=== PATIENT | female | born 1945 | race Caucasian/White ===

== ENCOUNTER 2018-12-29 21:02 | Outpatient (CLI) | payer MEDICARE, OTHER | END 2018-12-29 21:03 | disposition critical access hospital (66) | LOC: EMS 21:02 | PROVIDERS: ATTEND Surgery | DX: M25.552 Pain in left hip (principal); W01.0XXA Fall on same level from slipping, tripping and stumbling without subsequent striking against object, initial encounter; Y92.009 Unspecified place in unspecified non-institutional (private) residence as the place of occurrence of the external cause | CPT/HCPCS: A0425; A0427 ==

== ENCOUNTER 2018-12-29 21:42 | Inpatient (IN) | payer MEDICARE, OTHER ==
--- NOTE | 2018-12-29 21:42 | ED Physician Documentation ---
PD HPI LOWER EXT INJURY - Stated complaint Stated Complaint: GLF, L HIP PX - History obtained from History obtained from: Patient, EMS - History of Present Illness PD HPI LOW EXT INJURY LOCATION: Left, Hip Type of injury: Fall Where injury occurred: Home Timing - onset: Enter time (18:30), Today Timing - details: Abrupt onset Pain level max: 8 Pain level now: 5 Improved by: Rest, Other (fentanyl given by medics, total of 200 micrograms) Worsened by: Moving, Palpating Associated symptoms: No: Weakness, Numbness, Tingling, Swelling, Discolored Contributing factors: No: Anticoagulated, Prior ortho surgery, Prosthetic joint Similar symptoms before: Has not had sx before Recently seen: Not recently seen - Additional information Additional information: tripped over her dog at [place] [employer] at approximately 6:30 PM, landed on left hip and c/o sudden onset left hip pain. She is unable to bear weight on LLE. she had to crawl back into her house to get to the phone, a process which took approximately 2 hours. She denies head injury, denies LOC, denies any other injury or pain aside from left hip pain Review of Systems Constitutional: reports: Reviewed and negative Eyes: reports: Reviewed and negative Ears: reports: Reviewed and negative Nose: reports: Reviewed and negative Throat: reports: Reviewed and negative Cardiac: reports: Reviewed and negative Respiratory: reports: Reviewed and negative GI: reports: Reviewed and negative : denies: Incontinent Skin: reports: Reviewed and negative Musculoskeletal: reports: Back pain (chronic), Joint pain (left hip). denies: Neck pain Neurologic: denies: Generalized weakness, Focal weakness, Numbness, Headache, Head injury, LOC PD PAST MEDICAL HISTORY - Past Medical History Past Medical History: Yes Other Past Medical History: chronic LBP - Past Surgical History Past Surgical History: No - Allergies Allergies/Adverse Reactions: Allergies Allergy/AdvReac Type Severity Reaction Status Date / Time Sulfa (Sulfonamide AdvReac Unknown Verified 12/29/18 21:50 Antibiotics) - Living Situation Living Situation: reports: Alone Living Arrangement: reports: At home - Social History Does the pt smoke?: No PD ED PE NORMAL - Vitals Vital signs reviewed: Yes - General General: Alert and oriented X 3, No acute distress (NAD at rest), Well developed/nourished - HEENT HEENT: Atraumatic, PERRL, EOMI, Moist mucous membranes - Neck Neck: No bony TTP - Cardiac Cardiac: RRR, No murmur - Respiratory Respiratory: No respiratory distress, Clear bilaterally - Abdomen Abdomen: Soft, Non tender - Back Back: No spinal TTP - Derm Derm: Normal color, Warm and dry - Extremities Extremities: No edema, Other (TTP left hip; LLE is short compared to RLE and it is externally rotated) - Neuro Neuro: Alert and oriented X 3, naturopathic doctor 2-12 intact, No motor deficit, No sensory deficit Eye Opening: Spontaneous Motor: Obeys Commands Verbal: Oriented GCS Score: 15 Results - Vitals Vitals: Vital Signs - 24 hr 12/29/18 12/29/18 12/29/18 21:45 22:09 22:31 Temperature 36.9 C Heart Rate 84 80 88 Respiratory 17 17 16 Rate Blood Pressure 147/84 H 141/78 H O2 Saturation 95 94 95 Oxygen O2 Source Room air - Labs Labs: Laboratory Tests 12/29/18 12/29/18 12/29/18 22:08 22:08 22:08 WBC 12.5 H RBC 3.86 L Hgb 13.0 Hct 36.3 L MCV 94.0 MCH 33.7 H MCHC 35.8 RDW 11.9 L Plt Count 237 MPV 9.0 Neut # (Auto) 11.1 H Lymph # (Auto) 0.7 L [place] # (Auto) 0.6 Eos # (Auto) 0.0 Baso # (Auto) 0.0 Absolute Nucleated RBC 0.00 Nucleated RBC % 0.0 PT 11.2 INR 1.0 APTT 22.2 L Sodium 140 Potassium 3.8 Chloride 103 Carbon Dioxide 21 Anion Gap 16.0 H BUN 14 Creatinine 0.7 Estimated GFR (MDRD) 82 L Glucose 124 H Calcium 9.1 - Rads (name of study) left hip xrays Radiology: Prelim report reviewed, See rad report PD MEDICAL DECISION MAKING - ED course Complexity details: reviewed results, re-evaluated patient, considered differential, d/w patient ED course: D/W Dr. Coleman, recommends hospitalist admit. Dr. Coleman plans to perform operative repair tomorrow. D/W Dr. Espino who accepts admission to hospitalist service Departure - Departure Disposition: 66 [facility] DC/Xfer Clinical Impression: Hip fracture Condition: Stable Discharge Date/Time: 12/30/18 00:00
[2018-12-29 22:14] LABS: BASOPHILS % (AUTO) 0.3 %; EOSINOPHILS % (AUTO) 0.2 %; LYMPHOCYTES # (AUTO) 0.7 10^3/uL (1.5-3.5); LYMPHOCYTES % (AUTO) 5.5 %; MEAN CORPUSCULAR HEMOGLOBIN 33.7 pg (27.0-31.0); MEAN CORPUSCULAR HGB CONC 35.8 g/dL (32.0-36.0); MONOCYTES # (AUTO) 0.6 10^3/uL (0.0-1.0); MONOCYTES % (AUTO) 4.6 %; NEUTROPHILS # (AUTO) 11.1 10^3/uL (1.5-6.6); NEUTROPHILS % (AUTO) 88.8 %; PLT - PLATELET COUNT 237 10^3/uL (130-450); RED BLOOD COUNT 3.86 10^6/uL (4.20-5.40); RED CELL DISTRIBUTION WIDTH 11.9 % (12.0-15.0); WHITE BLOOD COUNT 12.5 x10^3/uL (4.8-10.8)
[2018-12-29 22:21] LABS: PT - PROTHROMBIN TIME 11.2 secs (9.9-12.6)
[2018-12-29 22:24] LABS: CALCIUM 9.1 mg/dL (8.5-10.3); CREATININE 0.7 mg/dL (0.4-1.0)
[2018-12-29 22:28] LABS: PARTIAL THROMBOPLASTIN TIME 22.2 secs (24.9-33.3)
[2018-12-29] MEDS ORDERED: MORPHINE 2 MG/ML CARPUJECT IVP STA (22:48)
[2018-12-29] MEDS ORDERED: SODIUM CHLORIDE 0.9% 1,000 ML IV STA (22:49)
--- NOTE | 2018-12-29 22:57 | XRAY Report ---
Reason: fall, pain Procedure Date: 12/29/2018 Accession Number: [id number] / [id number] Procedure: XR - Hip w/Pelvis 2-3V LT CPT Code: FULL RESULT: EXAM: LEFT HIP RADIOGRAPHY. EXAM DATE: 12/29/2018 10:27 PM. CLINICAL HISTORY: Fall, pain. COMPARISON: None. TECHNIQUE: 4 views. FINDINGS: Bones: There is an acute mild angulated transcervical left femoral fracture. Mild foreshortening. Joints: No dislocation demonstrated. There is bilateral hip joint chondrocalcinosis. Moderate bilateral hip joint DJD. Soft Tissues: Mild localized soft tissue swelling. Moderate calcific atherosclerosis. Moderate to severe lower lumbar degenerative change. IMPRESSION: Acute transcervical fracture of the left femur with mild foreshortening. RADIA
[2018-12-29] MEDS ORDERED: PANTOPRAZOLE 40 MG VIAL IVP STA (23:09)
[2018-12-29] MEDS ORDERED: SODIUM CHLORIDE FLUSH 0.9% 10 ML SYRINGE IVP PRN (23:20)
[2018-12-29] MEDS ORDERED: oxyCODONE 5 MG TABLET PO PRN (23:20)
[2018-12-29] MEDS ORDERED: ACETAMINOPHEN 325 MG TABLET PO PRN (23:20)
[2018-12-29] MEDS ORDERED: LACTATED RINGERS 1,000 ML IV SCH (23:45)
--- NOTE | 2018-12-30 | HISTORY & PHYSICAL EXAMINATION ---
Chief Complaint - Chief Complaint Chief Complaint: Left hip pain after fall History of Present Illness - Admitted From Admitted From:: Home - History Obtained From Records Reviewed: Yes History obtained from: Patient, ER Physician - History of Present Illness HPI Comment/Other: This is a 73 year old female with past medical history significant for chronic lower back pain, and GERD who presents from home after she had a fall. She reports falling down two steps earlier today while she was carrying dog food and going to her garage. She fell on her left hip and it took her two hours to crawl to the nearest phone to call for help. She currently reports the pain is 8/10, located over left hip, achy in nature, and radiates down her leg to the knee. She just received Morphine with minor relief. She denies any syncope or loss of consciousness prior to the fall and can recall the events leading up to it. She has recently been seeing a [facility] in [place] for her chronic lower back pain. She is actually scheduled for an MRI this week and to receive steroid injections. She does have occasional neuropathy of the lower extremities for which she takes Gabapentin. She reports being quite healthy overall and is very active. She used to ski a lot but now goes hiking and swimming without chest pain or dyspnea. She currently denies chest pain, dyspnea or palpitations. She reports a remote history of some type of arrhythmia when she was menopausal which she was told is associated with menopause. She reports no history of diabetes or renal disease. In the emergency department, she underwent imaging of her left hip which revealed an acute transcervical fracture of the left femur. Orthopedics was contacted by the ER physician and recommended admission for intervention. She does not have her living will documents with her but she states she does want CPR if anything were to happen. History - Past Medical History Cardiovascular: reports: None. 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 Was previously but now . Lives at home with her two dogs. Does not smoke or use illicit drugs. She usually does consume one alcoholic beverage each day. - Substance History Use: Uses substance without health or social issues: Alcohol - POLST Patient has POLST: No Meds/Allgy - Allergies Allergies/Adverse Reactions: Allergies Allergy/AdvReac Type Severity Reaction Status Date / Time Sulfa (Sulfonamide AdvReac Unknown Verified 12/29/18 21:50 Antibiotics) Review of Systems - Constitutional Constitutional: denies: Fatigue, Fever, Chills, Weakness - Ears, Nose & Throat Ears, Nose & Throat: reports: Other (Dry mouth) - Cardiovascular Cariovascular: denies: Palpitations, Chest pain, Edema, Exertional dyspnea, Decr. exercise tolerance - Respiratory Respiratory: denies: SOB at rest, SOB with exertion - Gastrointestinal Gastrointestinal: denies: Abdominal pain, Nausea, Vomiting - Genitourinary Genitourinary: reports: Incontinence - Musculoskeletal Musculoskeletal: reports: Back pain, Stiffness. denies: Muscle weakness - Integumentary Integumentary: denies: Rash - Neurological Neurological: reports: Numbness. denies: General weakness, Focal weakness - All Other Systems All Other Systems: reports: Reviewed and negative Prior Level of Functionality: Independent with ADL's. Exam - Vital Signs Reviewed Vital Signs: Yes Vital Signs: Vital Signs x48h Temp Pulse Resp BP Pulse Ox 12/29/18 23:31 85 16 153/76 H 95 12/29/18 22:31 88 16 141/78 H 95 12/29/18 22:09 80 17 94 12/29/18 21:45 36.9 C 84 17 147/84 H 95 - Physical Exam General Appearance: positive: Moderate distress Eyes Bilateral: positive: Normal inspection ENT: positive: Dry mucous membranes Neck: positive: Nml inspection Respiratory: positive: No respiratory distress, Breath sounds nml. negative: Wheezes, Rales, Rhonchi Cardiovascular: positive: Regular rate & rhythm. negative: No murmur, Tachycardia, Bradycardia Peripheral Pulses: positive: 2+ Abdomen: positive: Non-tender, No distention. negative: Tenderness, Guarding, Rebound Skin: positive: No rash, Warm, Dry Extremities: positive: Non-tender, Pedal edema (Trace edema in lower extremities), Other (Decreased range of motion of the left hip. No tenderness to palpation, eythema, or warmth.) Neurologic/Psychiatric: positive: Oriented x3, Sensation nml. negative: Disoriented to person, Disoriented to place, Disoriented to time Conclusion/Plan - Problem List (1) Fracture of left hip Conclusion/Plan: Unfortunately she has a transcervical fracture of the left femur after her mechanical fall that will require intervention. - Dilaudid PRN pain - Will give a one time dose of Heparin SC now as she will be high risk for venous thromboembolism, will resume Heparin SC postoperatively once OK with Orthopedics - NPO at midnight - Check Vitamin D level - She will require a bisphosphonate 4-6 weeks postoperatively as hip fractures are fragility fractures - PT/OT - Social work consult for disposition planning (2) Pre-op evaluation Conclusion/Plan: She has no chest pain, dyspnea, and palpitations. She is able to perform >4 METS without symptoms. She has no history of vascular disease, diabetes, or renal disease. She has no murmur on exam. Her EKG reveals a normal sinus rhythm without obvious ST segment changes. Her Green perioperative cardiac risk is 0.18% for a perioperative cardiac event given the orthopedic procedure site. (3) Chronic lower back pain Conclusion/Plan: She has a history of chronic lower back pain for which she follows with a [facility] in [place]. She is scheduled for an MRI this week and steroid injec tions but unfortunately she will have to miss these appointments because of her admission. She does take Gabapentin for neuropathy. The x-ray of the left hip here also revealed severe lumbar degenerative changes - Continue Gabapentin - Outpatient follow up with her [facility] (4) GERD (gastroesophageal reflux disease) Conclusion/Plan: She has a history of GERD associated with a hiatal hernia for which she takes a PPI. - Continue PPI - Lab Results Lab results reviewed: Yes Fish Bones: 12/30/18 05:00 12/30/18 05:00 - Diagnostic Imaging Results Diagnostic Imaging Results: positive: Final report reviewed - EKG Results EKG Interpreted Independently: Yes Core Measures - Anticipated LOS I expect patient to be DC'd or transferred within 96 hours.: Yes - Issues Hospital Issues and Management Plan: Left hip fracture that will require intervention by Orthopedics. - DVT/VTE - Prophylaxis VTE/DVT Device ordered at admit?: Yes VTE/DVT Prophylaxis med ordered at admit?: Yes
[2018-12-30] MEDS ORDERED: HEPARIN 5,000 UNIT/ML VIAL SUBQ STA (00:11)
[2018-12-30] MEDS ORDERED: SODIUM CHLORIDE FLUSH 0.9% 10 ML SYRINGE IVP SCH (01:00)
[2018-12-30] MEDS: HYDROmorphone 1 MG/ML CARPUJECT IVP PRN ×3 (01:05→06:59)
[2018-12-30] MEDS ORDERED: ONDANSETRON 4 MG/2 ML VIAL IVP PRN (01:14)
[2018-12-30 05:24] LABS: BASOPHILS % (AUTO) 0.2 %; EOSINOPHILS % (AUTO) 0.5 %; HGB - HEMOGLOBIN 12.1 g/dL (12.0-16.0); LYMPHOCYTES % (AUTO) 11.9 %; MEAN CORPUSCULAR HEMOGLOBIN 32.7 pg (27.0-31.0); MEAN CORPUSCULAR HGB CONC 34.5 g/dL (32.0-36.0); MEAN CORPUSCULAR VOLUME 94.9 fL (81.0-99.0); MEAN PLATELET VOLUME 9.3 fL (7.9-10.8); MONOCYTES # (AUTO) 0.7 10^3/uL (0.0-1.0); MONOCYTES % (AUTO) 8.2 %; NEUTROPHILS # (AUTO) 6.6 10^3/uL (1.5-6.6); NEUTROPHILS % (AUTO) 78.7 %; PLT - PLATELET COUNT 221 10^3/uL (130-450); RED CELL DISTRIBUTION WIDTH 12.2 % (12.0-15.0); WHITE BLOOD COUNT 8.4 x10^3/uL (4.8-10.8)
[2018-12-30 05:32] LABS: CALCIUM 9.1 mg/dL (8.5-10.3); CREATININE 0.8 mg/dL (0.4-1.0)
[2018-12-30] MEDS ORDERED: PANTOPRAZOLE 40 MG TABLET PO SCH (07:00)
[2018-12-30] MEDS ORDERED: BUPIVACAINE 0.25%-EPI 1:200000 PF 30 ML VIAL ONE (07:12)
--- NOTE | 2018-12-30 07:13 | ANESTHESIA ---
Pre-Anesthesia VS, & Labs - Diagnosis L hip fx\ - Procedure L hip ORIF Vital Signs: Temp Pulse Resp BP Pulse Ox 37.6 C H 80 20 142/77 H 95 12/30/18 01:46 12/30/18 01:46 12/30/18 01:46 12/30/18 00:10 12/30/18 01:46 Height 5 ft 6 in Weight (kg) 76.5 kg Body Mass Index 27.2 - NPO >8 hours - Is Patient ?: No - Lab Results Current Lab Results: Laboratory Tests 12/30/18 05:00: Sodium 141, Potassium 4.2, Chloride 104, Carbon Dioxide 25, Anion Gap 12.0, BUN 13, Creatinine 0.8, Estimated GFR (MDRD) 70 L, Glucose 125 H , Calcium 9.1 12/30/18 05:00: WBC 8.4, RBC 3.70 L, Hgb 12.1, Hct 35.1 L, MCV 94.9, MCH 32.7 H, MCHC 34.5, RDW 12.2, Plt Count 221, MPV 9.3, Neut # (Auto) 6.6, Lymph # (Auto) 1.0 L, [place] # (Auto) 0.7, Eos # (Auto) 0.0, Baso # (Auto) 0.0, Absolute Nucleated RBC 0.00, Nucleated RBC % 0.0 12/29/18 22:08: Sodium 140, Potassium 3.8, Chloride 103, Carbon Dioxide 21, Anion Gap 16.0 H, BUN 14, Creatinine 0.7, Estimated GFR (MDRD) 82 L, Glucose 124 H, Calcium 9.1 12/29/18 22:08: PT 11.2, INR 1.0, APTT 22.2 L 12/29/18 22:08: WBC 12.5 H, RBC 3.86 L, Hgb 13.0, Hct 36.3 L, MCV 94.0, MCH 33.7 H, MCHC 35.8, RDW 11.9 L, Plt Count 237, MPV 9.0, Neut # (Auto) 11.1 H, Lymph # (Auto) 0.7 L, [place] # (Auto) 0.6, Eos # (Auto) 0.0, Baso # (Auto) 0.0, Absolute Nucleated RBC 0.00, Nucleated RBC % 0.0 Lab results reviewed: Yes Fish Bones: 12/30/18 05:00 12/30/18 05:00 Home Medications and Allergies Active Medications Acetaminophen (Tylenol) 650 mg PO Q6HR PRN PRN Reason: Pain 1 to 4 Gabapentin (Neurontin) 100 mg PO QPM [facility] Heparin Sodium (Porcine) () 5,000 unit SUBQ BID [facility] Hydromorphone HCl (Dilaudid Inj Carp) 1 mg IVP Q2HR PRN PRN Reason: Pain 8 to 10 Last Admin: 12/30/18 06:59 Dose: 1 mg Lactated Ringer's (Lr) 1,000 mls @ 75 mls/hr IV .[id number] [facility] Last Admin: 12/30/18 01:05 Dose: 75 mls/hr Ondansetron HCl (Zofran Inj) 4 mg IVP Q4HR PRN PRN Reason: Nausea / Vomiting Oxycodone HCl (Roxicodone) 5 mg PO Q4HR PRN PRN Reason: Pain 5 to 7 Pantoprazole Sodium (Protonix) 40 mg PO QDAC [facility] Last Admin: 12/30/18 05:47 Dose: Not Given Sodium Chloride (Normal Saline Flush 0.9%) 10 ml IVP PRN PRN PRN Reason: NEEDED PER PROVIDER ORDERS Sodium Chloride (Normal Saline Flush 0.9%) 10 ml IVP 0100,0900,1700 [facility] Last Admin: 12/30/18 01:13 Dose: Not Given Allergies/Adverse Reactions: Allergies Allergy/AdvReac Type Severity Reaction Status Date / Time Sulfa (Sulfonamide AdvReac Unknown Verified 12/29/18 21:50 Antibiotics) Anes History & Medical History - Anesthetic History Anesthesia Complications: reports: No previous complications Family history of Anesthesia Complications: Denies Family history of Malignant Hyperthermia: Denies - Medical History Cardiovascular: reports: None. denies: Congestive heart failure, [place] Pulmonary: reports: None Gastrointestinal: reports: GERD Urinary: reports: Incontinence Neuro: reports: None Musculoskeletal: reports: Chronic back pain, Other (cervical and lumbar stenosis, neuropathies upper and lower extremities) Endocrine/Autoimmune: reports: None Blood Disorders: reports: None Skin: reports: None Smoking Status: Never smoker Other Past Medical History: chronic LBP - Surgical History General: EGD Orthopedic: Rotator cuff repair (Left shoulder), Spine surgery (Cervical) Dermatologic: Skin cancer surgery Exam General: Alert, Oriented x3, Cooperative Dental: WNL Mouth Openin Fingerbreadth Mallampati classification: II Respiratory: Lungs clear, Normal breath sounds Cardiovascular: Regular rate Neurological: Normal speech Mental/Cognitive Status: Alert/Oriented X3, Normal for patient Cognitive Status: Within normal limits Plan Anesthesia Type: General Consent for Procedure(s) Verified and Reviewed: Yes Code Status: Attempt Resuscitation ASA classification: 2-Mild systemic disease Is this case an emergency?: No
--- NOTE | 2018-12-30 07:25 | PROVIDER PROGRESS NOTE ---
Subjective - Prog Note Date Prog Note Date: 12/30/18 Prog Note Time: 07:22 - Subjective Pt reports feeling: Worse (Patient ONEYDA rodriguez GLF last afternoon at home, falling onto her left side. Unable to stand or weight bear on her left side. No distal weakness/numbness. No LOC or other injury. Was able to eventually crawl to a phone to call for help. In ER XR showed her displaced right femoral neck hip fracture. To OR for bipolar hip endoprosthesis.) Subjective: Patient ONEYDA Rodriguez GLF at home yesterday afternoon, falling onto her left side. Noted immediate left hip pain. Unable to stand or weight bear on left. Had to crawl to a phone to call for help. No LOC or other injury. Objective - Vital Signs/Intake & Output Vital Signs: Vital Signs x48h Temp Pulse Pulse Resp BP BP Pulse Ox 12/30/18 01:46 37.6 C H 80 20 95 12/30/18 00:10 37.6 C H 80 20 142/77 H 95 12/29/18 23:58 37.4 C 82 16 155/87 H 95 12/29/18 23:31 85 16 153/76 H 95 Intake & Output: Intake & Output 12/27/18 12/28/18 12/29/18 12/30/18 23:59 23:59 23:59 23:59 Intake Total 307.5 Output Total 500 250 Balance -500 57.5 - Lab Results Fish Bones: 12/30/18 05:00 12/30/18 05:00 Other Labs: Lab Results x24hrs 12/30/18 12/30/18 12/29/18 Range/Units 05:00 05:00 22:08 WBC 8.4 (4.8-10.8) x10^3/uL RBC 3.70 L (4.20-5.40) 10^6/uL Hgb 12.1 (12.0-16.0) g/dL Hct 35.1 L (37.0-47.0) % MCV 94.9 (81.0-99.0) fL MCH 32.7 H (27.0-31.0) pg MCHC 34.5 (32.0-36.0) g/dL RDW 12.2 (12.0-15.0) % Plt Count 221 (130-450) 10^3/uL MPV 9.3 (7.9-10.8) fL Neut # (Auto) 6.6 (1.5-6.6) 10^3/uL Lymph # (Auto) 1.0 L (1.5-3.5) 10^3/uL [place] # (Auto) 0.7 (0.0-1.0) 10^3/uL Eos # (Auto) 0.0 (0.0-0.7) 10^3/uL Baso # (Auto) 0.0 (0.0-0.1) 10^3/uL Absolute Nucleated RBC 0.00 x10^3/uL Nucleated RBC % 0.0 /100WBC PT (9.9-12.6) secs INR (0.8-1.2) APTT (24.9-33.3) secs Sodium 141 140 (135-145) mmol/L Potassium 4.2 3.8 (3.5-5.0) mmol/L Chloride 104 103 (101-111) mmol/L Carbon Dioxide 25 21 (21-32) mmol/L Anion Gap 12.0 16.0 H (6-13) BUN 13 14 (6-20) mg/dL Creatinine 0.8 0.7 (0.4-1.0) mg/dL Estimated GFR (MDRD) 70 L 82 L (>89) Glucose 125 H 124 H (70-100) mg/dL Calcium 9.1 9.1 (8.5-10.3) mg/dL 12/29/18 12/29/18 Range/Units 22:08 22:08 WBC 12.5 H (4.8-10.8) x10^3/uL RBC 3.86 L (4.20-5.40) 10^6/uL Hgb 13.0 (12.0-16.0) g/dL Hct 36.3 L (37.0-47.0) % MCV 94.0 (81.0-99.0) fL MCH 33.7 H (27.0-31.0) pg MCHC 35.8 (32.0-36.0) g/dL RDW 11.9 L (12.0-15.0) % Plt Count 237 (130-450) 10^3/uL MPV 9.0 (7.9-10.8) fL Neut # (Auto) 11.1 H (1.5-6.6) 10^3/uL Lymph # (Auto) 0.7 L (1.5-3.5) 10^3/uL [place] # (Auto) 0.6 (0.0-1.0) 10^3/uL Eos # (Auto) 0.0 (0.0-0.7) 10^3/uL Baso # (Auto) 0.0 (0.0-0.1) 10^3/uL Absolute Nucleated RBC 0.00 x10^3/uL Nucleated RBC % 0.0 /100WBC PT 11.2 (9.9-12.6) secs INR 1.0 (0.8-1.2) APTT 22.2 L (24.9-33.3) secs Sodium (135-145) mmol/L Potassium (3.5-5.0) mmol/L Chloride (101-111) mmol/L Carbon Dioxide (21-32) mmol/L Anion Gap (6-13) BUN (6-20) mg/dL Creatinine (0.4-1.0) mg/dL Estimated GFR (MDRD) (>89) Glucose (70-100) mg/dL Calcium (8.5-10.3) mg/dL - Diagnostic Imaging Diagnostic Imaging Comments: XR show a displaced left femoral neck hip fracture - Other Results/Comments Other Results/Comments: EXAM: Left hip: anterior groin tenderness. Painful left hip motion. Moves toes well. Sensation intact. Good cap filling Assessment/Plan - Problem List (1) Fracture of left hip Impression: Closed, displaced left femoral neck hip fracture - in an active, independent woman in a single level home PLAN: To OR this AM for cementless bipolar hip endoprosthesis. Treatment options given; questions answered. Risk and benefits of surgery including anesthesia risk, infection, blood loss, nerve damage, DVT, dislocation, etc explained. She wishes to proceed with surgery as planned. Consent signed. Leg marked. Qualifiers: Encounter type: initial encounter
[2018-12-30] MEDS ORDERED: LACTATED RINGERS 1,000 ML IV ONE ×2 (07:35→09:51)
[2018-12-30] MEDS ORDERED: ceFAZolin 1 GM in SODIUM CHLORIDE 0.9% MINIBAG 100 ML IV SCH (08:00)
[2018-12-30] MEDS ORDERED: BUPIVACAINE 0.25%-EPI 1:200000 PF 30 ML VIAL SUBQ ONE ×2 (08:41→10:20)
--- NOTE | 2018-12-30 08:53 | CONSULTATION NOTE ---
DATE OF SERVICE: 12/30/2018 Physician: Saul Coleman MD REFERRING PHYSICIAN: Gregory Omer MD, of the Emergency Room Department. CHIEF COMPLAINT: "My left hip hurts." HISTORY OF PRESENT ILLNESS: Patient is a 73-year-old, woman, independent, lives alone in a single-level home, who apparently fell going down to cement yesterday afternoon while she was attemp ting to feed her dog. She landed onto her left side with the fall. She noted immediate pain in her left hip area. She was unable to stand or weight bear due to pain. After several hours, she was abl e to crawl back up into her house to get to a phone to call for help. She was taken by ambulance to [facility], where x-rays showed a displaced left femoral neck fracture. She denies any loss of consciousness or other injuries. She was subsequently admitted to the hospital for preopera tive evaluation for probable hip surgery in the morning. PHYSICAL EXAMINATION: Patient's left hip was tender, especially in the anterior groin region. Painf ul hip range of motion noted today in bed. She was able to move her toes satisfactorily on command. Sensation appeared to be intact in the lower extremity. Good capillary filling noted. X-RAYS: X-rays that were taken show a displaced left femoral neck hip fracture. ASSESSMENT 1. Closed displaced left femoral neck hip fracture. 2. History of chronic back pain with the diagnosis of spinal stenosis. 3. History of gastroesophageal reflux disease. PLAN: Once patient has been cleared medically, we will plan on proceeding with surgery for her left hip. The risks and benefits of surgery were explained to patient. These include anesthesia risks, h ip dislocation, infection, blood loss, nerve damage, deep venous thromboses, etc. We did discuss the possibility of doing a screw fixation of her fracture and then the prostheses. After weighing the p ros and cons of either procedure, she wishes to proceed with a cementless left bipolar hip endoprosth esis. She has been scheduled to proceed with surgery later this morning. All of her questions were answered. Consent was signed. Leg was marked. TD: 12/30/2018 07:44
[2018-12-30] MEDS ORDERED: TRANEXAMIC ACID 1,000 MG/10 ML VIAL IV ONE (10:00)
[2018-12-30] MEDS ORDERED: CEFAZOLIN SODIUM IN 0.9 % NACL 2 GM/100 ML BAG IV ONE (10:00)
[2018-12-30] MEDS ORDERED: fentaNYL 100 MCG/2 ML VIAL IVP ONE (10:00)
[2018-12-30] MEDS ORDERED: ACETAMINOPHEN 1,000 MG/100 ML 100 ML IV ONE (10:00)
[2018-12-30] MEDS ORDERED: LIDOCAINE-MPF 2% 5 ML VIAL IM ONE (10:00)
[2018-12-30] MEDS ORDERED: MIDAZOLAM 2 MG/2 ML VIAL IVP ONE (10:00)
[2018-12-30] MEDS ORDERED: PROPOFOL 200 MG/20 ML VIAL IVP ONE (10:00)
[2018-12-30] MEDS ORDERED: KETOROLAC 30 MG/ML VIAL IVP ONE (10:00)
[2018-12-30] MEDS ORDERED: DEXAMETHASONE 4 MG/ML VIAL IVP ONE (10:00)
[2018-12-30] MEDS ORDERED: ROCURONIUM 50 MG/5 ML VIAL IVP ONE (10:00)
[2018-12-30] MEDS ORDERED: DOCUSATE SODIUM 100 MG CAPSULE PO PRN (10:31)
[2018-12-30] MEDS ORDERED: PROCHLORPERAZINE 10 MG/2 ML VIAL IVP PRN (10:31)
[2018-12-30] MEDS ORDERED: MORPHINE 2 MG/ML CARPUJECT IVP PRN (10:31)
[2018-12-30] MEDS ORDERED: SODIUM CHLORIDE FLUSH 0.9% 10 ML SYRINGE IVP PRN (10:31)
[2018-12-30] MEDS ORDERED: SENNA 8.6 MG TABLET PO PRN (10:31)
[2018-12-30] MEDS ORDERED: ACETAMINOPHEN 1,000 MG/100 ML 100 ML IV PRN (10:31)
--- NOTE | 2018-12-30 10:38 | OPERATIVE REPORT ---
Operative Report - General Admit Date: 12/29/18 Procedure Date: 12/30/18 Planned Procedure: Left cementless Synergy bipolar endoprosthesis Pre-Op Diagnosis: Closed, displaced left fempral neck hip fracture Procedure Performed: Left synergy cementless biop[olar endoprosthesis Post Op Diagnosis: Same - Procedure Note Primary Surgeon: Donovan Coleman MD Anesthesia Provider: Jesenia Henry CRNA Anesthesia Technique: General ET tube IV Fluids (mL): 1,300 Estimated Blood Loss (mL): 500 Complications: None
[2018-12-30] MEDS ORDERED: KETOROLAC 15 MG/ML VIAL ONE (10:53)
--- NOTE | 2018-12-30 11:10 | OPERATIVE REPORT ---
DATE OF SERVICE: 12/30/2018 Physician: Saul Coleman MD PREOPERATIVE DIAGNOSIS: Displaced, closed left femoral neck hip fracture. POSTOPERATIVE DIAGNOSIS: Displaced, closed left femoral neck hip fracture. PROCEDURE PERFORMED: Left Synergy cementless bipolar hip endoprosthesis. SURGEON: Saul Coleman MD ANESTHESIA: General. DESCRIPTION OF PROCEDURE: The patient was taken to the operating room on the morning of 12/30/2018, where she was placed under general anesthetic in supine position without any complications. She was then positioned onto the fracture table in the left lateral decubitus position with the left side up. She was held in position with the pegboard and pegs. We then proceeded to prep and drape the left hip in the usual fashion for our procedure. Through a curvilinear incision centered over the tip of the greater trochanter and curving posteriorl y proximally, we did a posterolateral approach to the hip joint. Hemostasis was obtained with electr ocautery. We detached the external rotators of the hip and came down to the femoral neck and the fra ctured femoral neck. Using the template, we then performed our osteotomy at the base of the femoral neck. We then did a T-type capsulotomy with electrocautery tagging the flaps with a [id number] stitch of 2-0 Vicryl sutures. We then used the cord screw apparatus to grab hold of the femoral head . With the hip skid, we then were able to manipulate the femoral head out of the joint. Calipers we re then used and we determined a 47 mm outside diameter prosthesis would be utilized. We cleared the fovea from within the acetabulum using a rongeur. Irrigated the joint out thoroughly with saline at this point. We then proceeded to use the box osteotome to widen the osteotomy of the proximal femur laterally. The Charnley awl was then used to locate the stem of the femoral canal. We then sequenti humbertoy used rigid reamers advancing a millimeter at a time until it appeared as if a 12-13 mm stem woul d be utilized. We then proceeded to sequentially broach the proximal femur using sequential broaches ending up at the 13 mm broach, which appeared to have a good fit. We detached the handle from our b brown and then proceeded to trial our prostheses using a standard offset 0 neck length and an externa l diameter prosthesis of 47 mm. We were able to reduce the hip easily. Appeared as if this was stab le on testing. The leg lengths appear to be equal in length. No impingement with extension of the h ip joint with the leg externally rotated. Sleep position was stable. Then, holding the hip flexed a t about 90 degrees and 0 abduction position, we were able to internally rotate the leg to about 55-60 degrees before subluxation of the prostheses occurred. It was felt that this was stable in position . We then dislocated the hip. We removed our trial prostheses. With the broach still in place, we then used a calcar reamer to smooth our osteotomy site. We then removed the broach from within the c anal. We then irrigated out the prepared proximal femur, acetabulum and the wound with pulse lavage irrigation. Next, we used our selected prostheses to insert into the patient. We used a 13 mm stem with a standa rd offset neck length of 0 and an internal head diameter of the bipolar being 28 mm with the outside diameter being 47 mm. We first inserted the stem of our prostheses in tapping it with a mallet until it was seated properly. We then placed the bipolar component onto the proximal end of our prosthese s. We tapped this in place with a mallet with 3 blows. Finally, we then gently reduced the hip into the acetabulum. Appeared to have a good audible reduction. Palpation circumferentially around the prostheses showed no soft tissue impingement within the joint. Finally, we went and checked on the s tability of the joint. The leg lengths appear to be equal compared to the opposite side. We were ab le to go to full extension easily with the leg externally rotated without impingement. We then put t he hip into a sleep position and this was stable. Finally, with the hip flexed to 90 degrees neutral abduction, we then internally rotated the leg to about 60 degrees, where we already noted joint subl uxation. Satisfied with this, we then put the leg into a neutral position. We irrigated the wound o ut thoroughly with saline, then proceeded to close the wound in layers using first reattachment of ou r capsule with a free needle with the previously inserted 2-0 Vicryl sutures that were used as stay s titches. We then proceeded to close the fascia isabelle incision using [id number] stitches of 0 Gaudencio ryl. Finally, 2-0 Vicryl used to close the subcutaneous tissues. Finally, skin lucie used to appr oximate the skin edge. We then dressed the hip wound. The patient was then placed into a hip abduct or pillow to hold the leg position as we positioned her supine and transferred her onto her bed. She was taken to recovery room in satisfactory condition. ESTIMATED BLOOD LOSS: 500 mL REPLACEMENT: 1300 mL crystalloid. INTRAOPERATIVE COMPLICATIONS: None. PLAN: The patient will be advanced to weightbearing as tolerated on this extremity and walker ambula ting with total hip precautions as tolerated. TD: 12/30/2018 10:49
--- NOTE | 2018-12-30 11:28 | XRAY Report ---
Reason: CHECK LEFT HEMIARTHROPLASTY POSITION Procedure Date: 12/30/2018 Accession Number: [id number] / [id number] Procedure: XR - Pelvis 1 View CPT Code: FULL RESULT: EXAM: PELVIS RADIOGRAPHY EXAM DATE: 12/30/2018 11:12 AM. CLINICAL HISTORY: Check left hemiarthroplasty position. COMPARISON: HIP W/PELVIS 2-3V LT 12/29/2018 10:03 PM. TECHNIQUE: 1 view. FINDINGS: Bones: No fracture is detected. Joints: There has been interval left hip arthroplasty. The head of the hemiarthroplasty is seated within the anatomic acetabulum, expected positioning. Soft Tissues: Within the soft tissues is a 1.7 x 1.0 cm radiopaque object within the surgical approach region, differential diagnosis is osseous fragment versus foreign body. IMPRESSION: Foreign body versus osseous fragment in the subcutaneous soft tissues as described. [facility] The call report notification system was initiated by Dr. Rudy Abraham at 11:27 AM on 12/30/2018. ADDENDUM: 12/30/18 11:49 The above call report findings were discussed with MARIBEL Hartley on behalf of Saul Coleman by Dr. Rudy Abraham at 11:49 AM on 12/30/2018.
[2018-12-30] MEDS: oxyCODONE 5 MG TABLET PO PRN ×2 (12:29→17:43)
[2018-12-30] MEDS: ONDANSETRON 4 MG/2 ML VIAL IVP PRN (12:29)
--- NOTE | 2018-12-30 13:02 | PROVIDER PROGRESS NOTE ---
Subjective - Prog Note Date Prog Note Date: 12/30/18 Prog Note Time: 13:01 - Subjective Pt reports feeling: Improved Subjective: Lois complains of nasal congestion, possibly leading to a cough, and states she believes that her surgery went as expected. She is worried about how getting out of bed is going to happen tomorrow. Current Medications - Current Medications Current Medications: Active Medications: Acetaminophen (Tylenol) 650 - 975 mg PO Q4HR PRN Docusate Sodium (Colace 100mg Capsule) 100 mg PO BID REX Fexofenadine HCl (Ella) 60 mg PO DAILY REX Gabapentin (Neurontin) 100 mg PO QPM REX Gabapentin (Neurontin) 200 mg PO QPM REX Heparin Sodium (Porcine) 5,000 unit SUBQ BID REX Sodium Chloride (Normal Saline 0.9%) 1,000 mls @ 100 mls/hr IV .Q10H REX Morphine Sulfate (Morphine (Carpuject) 2 mg IVP Q2HR PRN Ondansetron HCl (Zofran Inj) 4 mg IVP Q6HR PRN Oxycodone HCl (Roxicodone) 5 mg PO Q4HR PRN Pantoprazole Sodium (Protonix) 40 mg PO BID REX Prochlorperazine Edisylate (Compazine Inj) 10 mg IVP Q6HR PRN Senna (Senokot) 17.2 mg PO Q12H REX Sodium Chloride ([place]) 2 sprays JOSE ARMANDO BID [facility] meds: Gabapentin 200 - 300 mg PO QPM 12/30/18 Pantoprazole Sodium 20 mg PO BIDAC 12/30/18 raNITIdine [Zantac] 150 mg PO BID 12/30/18 Objective - Vital Signs/Intake & Output Reviewed Vital Signs: Yes Vital Signs: Vital Signs x48h Temp Pulse Pulse Resp BP BP Pulse Ox 12/30/18 11:37 37.0 C 76 18 142/75 H 98 12/30/18 11:12 36.8 C 77 18 144/80 H 98 12/30/18 11:06 75 14 149/79 H 99 12/30/18 11:02 75 13 138/78 H 92 12/30/18 10:57 75 14 138/89 H 97 12/30/18 10:51 37.2 C 73 16 144/87 H 96 12/30/18 10:49 85 22 146/80 H 99 12/30/18 10:41 69 12 103/87 H 100 12/30/18 10:36 69 13 150/79 H 100 12/30/18 10:31 36.8 C 73 12 156/77 H 100 Intake & Output: Intake & Output 12/27/18 12/28/18 12/29/18 12/30/18 23:59 23:59 23:59 23:59 Intake Total 307.5 Output Total 500 250 Balance -500 57.5 - Objective General Appearance: positive: No acute distress, Alert Eyes Bilateral: positive: PERRL ENT: positive: Pharynx nml, No signs of dehydration Neck: positive: Thyroid nml, No JVD, Trachea midline Respiratory: positive: Chest non-tender, No respiratory distress, Other (scattered crackles, bilaterally, cough today) Cardiovascular: positive: Regular rate & rhythm, No gallop, Systolic murmur Peripheral Pulses: 1+ Radial (R), 1+ Radial (L), 1+ Dorsalis pedis (R), 1+ Dorsalis pedis (L) Abdomen: positive: Non-tender, Nml bowel sounds Back: positive: Nml inspection Skin: positive: No rash, Warm, Dry, Other (tanned skin tone) Extremities: positive: Joint swelling (left hip post-op swelling) Neurologic/Psychiatric: positive: Oriented x3, CN's nml (2-12), Motor nml, Sensation nml, Weakness Reflexes: Bicep (R): 3+, Bicep (L): 3+ - Lab Results Fish Bones: 12/31/18 05:44 12/31/18 05:44 Other Labs: Lab Results x24hrs 12/30/18 12/30/18 12/30/18 Range/Units 11:16 05:00 05:00 WBC (4.8-10.8) x10^3/uL RBC (4.20-5.40) 10^6/uL Hgb (12.0-16.0) g/dL Hct (37.0-47.0) % MCV (81.0-99.0) fL MCH (27.0-31.0) pg MCHC (32.0-36.0) g/dL RDW (12.0-15.0) % Plt Count (130-450) 10^3/uL MPV (7.9-10.8) fL Neut # (Auto) (1.5-6.6) 10^3/uL Lymph # (Auto) (1.5-3.5) 10^3/uL [place] # (Auto) (0.0-1.0) 10^3/uL Eos # (Auto) (0.0-0.7) 10^3/uL Baso # (Auto) (0.0-0.1) 10^3/uL Absolute Nucleated RBC x10^3/uL Nucleated RBC % /100WBC PT (9.9-12.6) secs INR (0.8-1.2) APTT (24.9-33.3) secs Sodium 141 (135-145) mmol/L Potassium 4.2 (3.5-5.0) mmol/L Chloride 104 (101-111) mmol/L Carbon Dioxide 25 (21-32) mmol/L Anion Gap 12.0 (6-13) BUN 13 (6-20) mg/dL Creatinine 0.8 (0.4-1.0) mg/dL Estimated GFR (MDRD) 70 L (>89) Glucose 125 H (70-100) mg/dL Calcium 9.1 (8.5-10.3) mg/dL Blood Type B POSITIVE Blood Type Recheck B POSITIVE Antibody Screen NEGATIVE 12/30/18 12/29/18 12/29/18 Range/Units 05:00 22:08 22:08 WBC 8.4 (4.8-10.8) x10^3/uL RBC 3.70 L (4.20-5.40) 10^6/uL Hgb 12.1 (12.0-16.0) g/dL Hct 35.1 L (37.0-47.0) % MCV 94.9 (81.0-99.0) fL MCH 32.7 H (27.0-31.0) pg MCHC 34.5 (32.0-36.0) g/dL RDW 12.2 (12.0-15.0) % Plt Count 221 (130-450) 10^3/uL MPV 9.3 (7.9-10.8) fL Neut # (Auto) 6.6 (1.5-6.6) 10^3/uL Lymph # (Auto) 1.0 L (1.5-3.5) 10^3/uL [place] # (Auto) 0.7 (0.0-1.0) 10^3/uL Eos # (Auto) 0.0 (0.0-0.7) 10^3/uL Baso # (Auto) 0.0 (0.0-0.1) 10^3/uL Absolute Nucleated RBC 0.00 x10^3/uL Nucleated RBC % 0.0 /100WBC PT 11.2 (9.9-12.6) secs INR 1.0 (0.8-1.2) APTT 22.2 L (24.9-33.3) secs Sodium 140 (135-145) mmol/L Potassium 3.8 (3.5-5.0) mmol/L Chloride 103 (101-111) mmol/L Carbon Dioxide 21 (21-32) mmol/L Anion Gap 16.0 H (6-13) BUN 14 (6-20) mg/dL Creatinine 0.7 (0.4-1.0) mg/dL Estimated GFR (MDRD) 82 L (>89) Glucose 124 H (70-100) mg/dL Calcium 9.1 (8.5-10.3) mg/dL Blood Type Blood Type Recheck Antibody Screen 12/29/18 Range/Units 22:08 WBC 12.5 H (4.8-10.8) x10^3/uL RBC 3.86 L (4.20-5.40) 10^6/uL Hgb 13.0 (12.0-16.0) g/dL Hct 36.3 L (37.0-47.0) % MCV 94.0 (81.0-99.0) fL MCH 33.7 H (27.0-31.0) pg MCHC 35.8 (32.0-36.0) g/dL RDW 11.9 L (12.0-15.0) % Plt Count 237 (130-450) 10^3/uL MPV 9.0 (7.9-10.8) fL Neut # (Auto) 11.1 H (1.5-6.6) 10^3/uL Lymph # (Auto) 0.7 L (1.5-3.5) 10^3/uL [place] # (Auto) 0.6 (0.0-1.0) 10^3/uL Eos # (Auto) 0.0 (0.0-0.7) 10^3/uL Baso # (Auto) 0.0 (0.0-0.1) 10^3/uL Absolute Nucleated RBC 0.00 x10^3/uL Nucleated RBC % 0.0 /100WBC PT (9.9-12.6) secs INR (0.8-1.2) APTT (24.9-33.3) secs Sodium (135-145) mmol/L Potassium (3.5-5.0) mmol/L Chloride (101-111) mmol/L Carbon Dioxide (21-32) mmol/L Anion Gap (6-13) BUN (6-20) mg/dL Creatinine (0.4-1.0) mg/dL Estimated GFR (MDRD) (>89) Glucose (70-100) mg/dL Calcium (8.5-10.3) mg/dL Blood Type Blood Type Recheck Antibody Screen - Diagnostic Imaging Diagnostic Imaging Results: positive: Final report reviewed Diagnostic Imaging Comments: EXAM: LEFT HIP RADIOGRAPHY EXAM DATE: 12/29/2018 10:27 PM FINDINGS: Bones: There is an acute mild angulated transcervical left femoral fracture. Mild foreshortening. Joints: No dislocation demonstrated. There is bilateral hip joint chondrocalcinosis. Moderate bilateral hip joint DJD. Soft Tissues: Mild localized soft tissue swelling. Moderate calcific atherosclerosis. Moderate to severe lower lumbar degenerative change. IMPRESSION: Acute transcervical fracture of the left femur with mild foreshortening. ABX Reporting Has patient been on IV antibiotics over the past 48 hours?: Yes Assessment/Plan - Problem List (1) Postoperative pain, acute, hip Impression: - Patient is comfortable while not moving - Has not been out of bed yet since surgery Plan: Continue to treat with dilaudid, tylenol, monitor for improvement Qualifiers: Laterality: left Qualified Code(s): G89.18 - Other acute postprocedural pain; M25.552 - Pain in left hip (2) Fracture of left hip Impression: - Patient admits to injuring her neck, and ankle in the past - She admits to a mechanical fall at home while carrying some dog food bags - Imaging confirmed this finding with an acute transcervical fracture of the left femur with mild foreshortening - Dr. Coleman performed a left hip repair and documented approximately 500 mL blood loss and no post-op complications Plan: Continue post op cares Qualifiers: Encounter type: initial encounter (3) Fall Impression: - Patient arrived via EMS to the ER and reported, "I was walking, tripped over dog, landing on left hip/leg at about 6:30pm tonight". She denied striking her head, a loss of consiousness, or head or neck pain. Initial exam showed a shortening of the left leg - Patient denies previous episodes, or recent dizziness - She does admit to prior urinary tract infections, and had a WBC count of 12.5 on arrival, febrile with a temp max of 37.6 C - Consequently fracture of left hip - Now post-op left hip repair with Dr. Coleman Plan: Await PT evaluations, up for meals with nursing, and fall precautions Qualifiers: Encounter type: initial encounter Qualified Code(s): W19.XXXA - Unspecified fall, initial encounter (4) GERD (gastroesophageal reflux disease) Impression: - terminologist use of PPI at home - Continues on Protonix here - Complicating factor of a known hiatal hernia Plan: Continue PPI, treat symptoms (5) Hiatal hernia Impression: - Patient states this in her past medical history - Takes a PPI at home, continued here
[2018-12-30] MEDS: SODIUM CHLORIDE 0.9% 1,000 ML IV SCH (13:17)
[2018-12-30] MEDS: ceFAZolin 2 GM in SODIUM CHLORIDE 0.9% 100ML 100 ML IV SCH (16:04)
[2018-12-30] MEDS: SODIUM CHLORIDE FLUSH 0.9% 10 ML SYRINGE IVP SCH (17:05)
[2018-12-30] MEDS: ACETAMINOPHEN 325 MG TABLET PO PRN (17:45)
[2018-12-30] MEDS: DOCUSATE SODIUM 100 MG CAPSULE PO SCH ×2 (20:17→20:41)
[2018-12-30] MEDS: SENNA 8.6 MG TABLET PO SCH (20:17)
[2018-12-30] MEDS: GABAPENTIN 100 MG CAPSULE PO SCH (20:40)
[2018-12-30] MEDS: PANTOPRAZOLE 40 MG TABLET PO SCH (20:40)
[2018-12-30] MEDS: SODIUM CHLORIDE 0.65% NASAL SPRAY NAS SCH (20:42)
[2018-12-30 21:00] LABS: BILIRUBIN,URINE NEGATIVE (NEGATIVE); GLUCOSE, URINE (UA) NEGATIVE (NEGATIVE); KETONES,URINE (UA) NEGATIVE (NEGATIVE); LEUKOCYTE ESTERASE, URINE NEGATIVE (NEGATIVE); NITRITE,URINE NEGATIVE (NEGATIVE); OCCULT BLOOD,URINE TRACE-INTA (NEGATIVE); PROTEIN,URINE NEGATIVE (NEGATIVE); UROBILINOGEN,URINE 0.2 (NORMAL) E.U./dL (NORMAL)
[2018-12-30] MEDS ORDERED: GABAPENTIN 100 MG CAPSULE PO SCH (21:00)
[2018-12-30 21:01] LABS: CLARITY,URINE CLEAR (CLEAR)
--- NOTE | 2018-12-30 21:15 | XRAY Report ---
Reason: cough Procedure Date: 12/30/2018 Accession Number: [id number] / [id number] Procedure: XR - Chest 1 View X-Ray CPT Code: 06649 FULL RESULT: EXAM: CHEST RADIOGRAPHY EXAM DATE: 12/30/2018 07:43 PM. CLINICAL HISTORY: Cough. COMPARISON: None. TECHNIQUE: 1 view. FINDINGS: Lungs/Pleura: Crowding of right infrahilar markings. No definite consolidation or pulmonary edema. No pneumothorax or pleural effusion. Mediastinum: Mild cardiomegaly and mildly tortuous aorta. Other: Scoliosis. No acute fracture evident. Suture anchor in the right humeral head. IMPRESSION: 1. Mild cardiomegaly. No eugene pulmonary edema. 2. Crowding of right infrahilar lung markings, possible hypoventilatory change. No definite consolidation. Follow-up, if appropriate. [facility]
[2018-12-30 21:17] LABS: BACTERIA,URINE None Seen /HPF (None Seen); EPITHELIAL CELLS,UR RARE Transitional /HPF (<= Few); RBC,URINE None Seen /HPF (0-5); SQUAMOUS EPITHELIAL CELL,UR NONE SEEN (<= Few)
[2018-12-31] MEDS: ACETAMINOPHEN 325 MG TABLET PO PRN ×3 (00:02→16:49)
[2018-12-31] MEDS: oxyCODONE 5 MG TABLET PO PRN ×5 (00:02→20:55)
[2018-12-31] MEDS: ceFAZolin 2 GM in SODIUM CHLORIDE 0.9% 100ML 100 ML IV SCH (00:03)
[2018-12-31] MEDS: SODIUM CHLORIDE 0.9% 1,000 ML IV SCH ×4 (00:03→20:58)
[2018-12-31] MEDS: SODIUM CHLORIDE FLUSH 0.9% 10 ML SYRINGE IVP SCH ×3 (01:06→18:02)
[2018-12-31 05:56] LABS: BASOPHILS % (AUTO) 0.3 %; EOSINOPHILS # (AUTO) 0.1 10^3/uL (0.0-0.7); EOSINOPHILS % (AUTO) 1.9 %; HGB - HEMOGLOBIN 9.5 g/dL (12.0-16.0); LYMPHOCYTES # (AUTO) 1.5 10^3/uL (1.5-3.5); LYMPHOCYTES % (AUTO) 19.4 %; MEAN CORPUSCULAR HEMOGLOBIN 32.8 pg (27.0-31.0); MEAN CORPUSCULAR HGB CONC 33.6 g/dL (32.0-36.0); MEAN CORPUSCULAR VOLUME 97.6 fL (81.0-99.0); MEAN PLATELET VOLUME 9.2 fL (7.9-10.8); MONOCYTES # (AUTO) 0.8 10^3/uL (0.0-1.0); MONOCYTES % (AUTO) 10.5 %; NEUTROPHILS # (AUTO) 5.1 10^3/uL (1.5-6.6); NEUTROPHILS % (AUTO) 67.5 %; PLT - PLATELET COUNT 160 10^3/uL (130-450); RED CELL DISTRIBUTION WIDTH 12.2 % (12.0-15.0); WHITE BLOOD COUNT 7.5 x10^3/uL (4.8-10.8)
[2018-12-31 06:17] LABS: ALBUMIN 3.3 g/dL (3.2-5.5); ALBUMIN/GLOBULIN RATIO 1.5 (1.0-2.2); BILIRUBIN,TOTAL 0.6 mg/dL (0.2-1.0); CALCIUM 8.3 mg/dL (8.5-10.3); CREATININE 0.8 mg/dL (0.4-1.0); MAGNESIUM 1.9 mg/dL (1.7-2.8); TOTAL PROTEIN 5.5 g/dL (6.7-8.2)
--- NOTE | 2018-12-31 08:06 | PROVIDER PROGRESS NOTE ---
Subjective - Prog Note Date Prog Note Date: 12/31/18 Prog Note Time: 08:06 - Subjective Pt reports feeling: Improved Subjective: Lois complains of a relentless headache, which she states she gets at home. She states that this occurred shortly after lunch, which prevented her from working with therapy. She denies chest pain, vomiting, diarrhea, increased hip pain or a new cough. Current Medications - Current Medications Current Medications: Active Medications: Acetaminophen (Tylenol) 650 - 975 mg PO Q4HR PRN Dexamethasone (Decadron) 10 mg IVP Q6H REX Docusate Sodium (Colace 100mg Capsule) 100 mg PO BID REX Enoxaparin Sodium (Lovenox) 40 mg SUBQ DAILY REX Fexofenadine HCl (Ella) 60 mg PO DAILY REX Gabapentin (Neurontin) 200 mg PO QPM REX Sodium Chloride (Normal Saline 0.9%) 1,000 mls @ 100 mls/hr IV .Q10H REX Metoclopramide HCl (Reglan Inj) 5 mg IVP Q6HR REX Morphine Sulfate (Morphine (Carpuject) 2 mg IVP Q2HR PRN Ondansetron HCl (Zofran Inj) 4 mg IVP Q6HR PRN Oxycodone HCl (Roxicodone) 5 mg PO Q4HR PRN Oxymetazoline HCl (Afrin) 2 sprays JOSE ARMANDO BID REX Pantoprazole Sodium (Protonix) 40 mg PO BID REX Prochlorperazine Edisylate (Compazine Inj) 10 mg IVP Q6HR PRN Senna (Senokot) 17.2 mg PO Q12H REX Sodium Chloride ([place]) 2 sprays JOSE ARMANDO BID [facility] HOME meds: Gabapentin 200 - 300 mg PO QPM 12/30/18 Pantoprazole Sodium 20 mg PO BIDAC 12/30/18 raNITIdine [Zantac] 150 mg PO BID 12/30/18 Objective - Vital Signs/Intake & Output Reviewed Vital Signs: Yes Vital Signs: Vital Signs x48h Temp Pulse Resp BP Pulse Ox 12/31/18 03:54 37.3 C 67 16 119/63 98 Intake & Output: Intake & Output 12/28/18 12/29/18 12/30/18 12/31/18 23:59 23:59 23:59 23:59 Intake Total 3307.500 250 Output Total 500 2500 650 Balance -500 807.500 -400 - Objective General Appearance: positive: Moderate distress, Lethargic Eyes Bilateral: positive: PERRL, No lid inflammation Eyes: OU Scleral icterus (mild) ENT: positive: Pharynx nml, No signs of dehydration Neck: positive: Thyroid nml, No JVD Respiratory: positive: Chest non-tender, No respiratory distress, Breath sounds nml Cardiovascular: positive: Regular rate & rhythm, No gallop, Systolic murmur Peripheral Pulses: 1+ Radial (R), 1+ Radial (L) Abdomen: positive: Non-tender, Nml bowel sounds, Other (rounded, soft) Back: positive: Nml inspection Skin: positive: No rash, Warm, Dry, Other (bronze skin toned) Extremities: positive: Pedal edema, Joint swelling (left hip post op swelling, no obvious bleeding) Neurologic/Psychiatric: positive: Oriented x3, CN's nml (2-12), Motor nml, Sensation nml, Weakness, Depressed mood/affect, Other (less interactive, sweating noted on palms, +Nausea, no anxiety) Reflexes: Bicep (R): 3+, Bicep (L): 3+ - Lab Results Fish Bones: 12/31/18 05:44 12/31/18 05:44 Other Labs: Lab Results x24hrs 12/31/18 12/31/18 12/31/18 Range/Units 05:44 05:44 05:44 WBC 7.5 (4.8-10.8) x10^3/uL RBC 2.90 L (4.20-5.40) 10^6/uL Hgb 9.5 L (12.0-16.0) g/dL Hct 28.3 L (37.0-47.0) % MCV 97.6 (81.0-99.0) fL MCH 32.8 H (27.0-31.0) pg MCHC 33.6 (32.0-36.0) g/dL RDW 12.2 (12.0-15.0) % Plt Count 160 (130-450) 10^3/uL MPV 9.2 (7.9-10.8) fL Neut # (Auto) 5.1 (1.5-6.6) 10^3/uL Lymph # (Auto) 1.5 (1.5-3.5) 10^3/uL [place] # (Auto) 0.8 (0.0-1.0) 10^3/uL Eos # (Auto) 0.1 (0.0-0.7) 10^3/uL Baso # (Auto) 0.0 (0.0-0.1) 10^3/uL Absolute Nucleated RBC 0.00 x10^3/uL Nucleated RBC % 0.0 /100WBC Sodium 141 (135-145) mmol/L Potassium 4.1 (3.5-5.0) mmol/L Chloride 105 (101-111) mmol/L Carbon Dioxide 27 (21-32) mmol/L Anion Gap 9.0 (6-13) BUN 10 (6-20) mg/dL Creatinine 0.8 (0.4-1.0) mg/dL Estimated GFR (MDRD) 70 L (>89) Glucose 111 H (70-100) mg/dL Calcium 8.3 L (8.5-10.3) mg/dL Magnesium 1.9 (1.7-2.8) mg/dL Total Bilirubin 0.6 (0.2-1.0) mg/dL AST 22 (10-42) IU/L ALT 14 (10-60) IU/L Alkaline Phosphatase 52 (42-121) IU/L Total Protein 5.5 L (6.7-8.2) g/dL Albumin 3.3 (3.2-5.5) g/dL Globulin 2.2 (2.1-4.2) g/dL Albumin/Globulin Ratio 1.5 (1.0-2.2) 25-OH Vitamin D Total (30-100) ng/mL TSH 0.28 L (0.34-5.60) uIU/mL Urine Color Urine Clarity (CLEAR) Urine pH (5.0-7.5) PH Ur Specific [place] (1.002-1.030) Urine Protein (NEGATIVE) mg/dL Urine Glucose (UA) (NEGATIVE) mg/dL Urine Ketones (NEGATIVE) mg/dL Urine Occult Blood (NEGATIVE) Urine Nitrite (NEGATIVE) Urine Bilirubin (NEGATIVE) Urine Urobilinogen (NORMAL) E.U./dL Ur Leukocyte Esterase (NEGATIVE) Urine RBC (0-5) /HPF Urine WBC (0-5) /HPF Ur Epithelial Cells (<= Few) /HPF Ur Squamous Epith Cells (<= Few) Urine Bacteria (None Seen) /HPF Urine Culture Comments Blood Type Blood Type Recheck Antibody Screen 12/30/18 12/30/18 12/30/18 Range/Units 20:45 11:16 05:00 WBC (4.8-10.8) x10^3/uL RBC (4.20-5.40) 10^6/uL Hgb (12.0-16.0) g/dL Hct (37.0-47.0) % MCV (81.0-99.0) fL MCH (27.0-31.0) pg MCHC (32.0-36.0) g/dL RDW (12.0-15.0) % Plt Count (130-450) 10^3/uL MPV (7.9-10.8) fL Neut # (Auto) (1.5-6.6) 10^3/uL Lymph # (Auto) (1.5-3.5) 10^3/uL [place] # (Auto) (0.0-1.0) 10^3/uL Eos # (Auto) (0.0-0.7) 10^3/uL Baso # (Auto) (0.0-0.1) 10^3/uL Absolute Nucleated RBC x10^3/uL Nucleated RBC % /100WBC Sodium (135-145) mmol/L Potassium (3.5-5.0) mmol/L Chloride (101-111) mmol/L Carbon Dioxide (21-32) mmol/L Anion Gap (6-13) BUN (6-20) mg/dL Creatinine (0.4-1.0) mg/dL Estimated GFR (MDRD) (>89) Glucose (70-100) mg/dL Calcium (8.5-10.3) mg/dL Magnesium (1.7-2.8) mg/dL Total Bilirubin (0.2-1.0) mg/dL AST (10-42) IU/L ALT (10-60) IU/L Alkaline Phosphatase (42-121) IU/L Total Protein (6.7-8.2) g/dL Albumin (3.2-5.5) g/dL Globulin (2.1-4.2) g/dL Albumin/Globulin Ratio (1.0-2.2) 25-OH Vitamin D Total (30-100) ng/mL TSH (0.34-5.60) uIU/mL Urine Color YELLOW Urine Clarity CLEAR (CLEAR) Urine pH 6.0 (5.0-7.5) PH Ur Specific [place] <=1.005 (1.002-1.030) Urine Protein NEGATIVE (NEGATIVE) mg/dL Urine Glucose (UA) NEGATIVE (NEGATIVE) mg/dL Urine Ketones NEGATIVE (NEGATIVE) mg/dL Urine Occult Blood TRACE-INTA (NEGATIVE) Urine Nitrite NEGATIVE (NEGATIVE) Urine Bilirubin NEGATIVE (NEGATIVE) Urine Urobilinogen 0.2 (NORMAL) (NORMAL) E.U./dL Ur Leukocyte Esterase NEGATIVE (NEGATIVE) Urine RBC None Seen (0-5) /HPF Urine WBC 4-5 (0-5) /HPF Ur Epithelial Cells RARE Transitional (<= Few) /HPF Ur Squamous Epith Cells NONE SEEN (<= Few) Urine Bacteria None Seen (None Seen) /HPF Urine Culture Comments NOT INDICATED Blood Type B POSITIVE Blood Type Recheck B POSITIVE Antibody Screen NEGATIVE 12/30/18 Range/Units 05:00 WBC (4.8-10.8) x10^3/uL RBC (4.20-5.40) 10^6/uL Hgb (12.0-16.0) g/dL Hct (37.0-47.0) % MCV (81.0-99.0) fL MCH (27.0-31.0) pg MCHC (32.0-36.0) g/dL RDW (12.0-15.0) % Plt Count (130-450) 10^3/uL MPV (7.9-10.8) fL Neut # (Auto) (1.5-6.6) 10^3/uL Lymph # (Auto) (1.5-3.5) 10^3/uL [place] # (Auto) (0.0-1.0) 10^3/uL Eos # (Auto) (0.0-0.7) 10^3/uL Baso # (Auto) (0.0-0.1) 10^3/uL Absolute Nucleated RBC x10^3/uL Nucleated RBC % /100WBC Sodium (135-145) mmol/L Potassium (3.5-5.0) mmol/L Chloride (101-111) mmol/L Carbon Dioxide (21-32) mmol/L Anion Gap (6-13) BUN (6-20) mg/dL Creatinine (0.4-1.0) mg/dL Estimated GFR (MDRD) (>89) Glucose (70-100) mg/dL Calcium (8.5-10.3) mg/dL Magnesium (1.7-2.8) mg/dL Total Bilirubin (0.2-1.0) mg/dL AST (10-42) IU/L ALT (10-60) IU/L Alkaline Phosphatase (42-121) IU/L Total Protein (6.7-8.2) g/dL Albumin (3.2-5.5) g/dL Globulin (2.1-4.2) g/dL Albumin/Globulin Ratio (1.0-2.2) 25-OH Vitamin D Total 39 (30-100) ng/mL TSH (0.34-5.60) uIU/mL Urine Color Urine Clarity (CLEAR) Urine pH (5.0-7.5) PH Ur Specific [place] (1.002-1.030) Urine Protein (NEGATIVE) mg/dL Urine Glucose (UA) (NEGATIVE) mg/dL Urine Ketones (NEGATIVE) mg/dL Urine Occult Blood (NEGATIVE) Urine Nitrite (NEGATIVE) Urine Bilirubin (NEGATIVE) Urine Urobilinogen (NORMAL) E.U./dL Ur Leukocyte Esterase (NEGATIVE) Urine RBC (0-5) /HPF Urine WBC (0-5) /HPF Ur Epithelial Cells (<= Few) /HPF Ur Squamous Epith Cells (<= Few) Urine Bacteria (None Seen) /HPF Urine Culture Comments Blood Type Blood Type Recheck Antibody Screen ABX Reporting Has patient been on IV antibiotics over the past 48 hours?: No Assessment/Plan - Problem List (1) Postoperative pain, acute, hip Impression: - Patient is comfortable while not moving - Refused therapy today x2, underwent an OT evaluation, who recommends SNF verses home with home health Plan: Continue to treat with dilaudid, tylenol, monitor for improvement Qualifiers: Laterality: left Qualified Code(s): G89.18 - Other acute postprocedural pain; M25.552 - Pain in left hip (2) Migraine Impression: - Patient states that her migraine started shortly after lunch, and is accompa nied by nausea, sweating, and triggered by bright lights - Patient states that this is not uncommon for her, and states that since her cervical spine surgery, she suffers at least monthly with migraines - Dilaudid and tylenol are not working - Afrin spray has not been started yet, ella has been added to her med list Plan: Continue to monitor for improvement, give IV reglan, IV decadron (x3 dos es Q6H), and offer alcohol if ETOH withdrawal is suspected (3) Fracture of left hip Impression: - Patient admits to injuring her neck, and ankle in the past - She admits to a mechanical fall at home while carrying some dog food bags - Imaging confirmed this finding with an acute transcervical fracture of the left femur with mild foreshortening - Dr. Coleman performed a left hip repair and documented approximately 500 mL blood loss and no post-op complications - Today admits to consuming daily "cocktails" of likely 3-5 drinks per day, so likely a contributing factor to this fall Plan: Continue post op cares Qualifiers: Encounter type: initial encounter (4) Fall Impression: - Patient arrived via EMS to the ER and reported, "I was walking, tripped over dog, landing on left hip/leg at about 6:30pm tonight". She denied striking her head, a loss of consciousness, or head or neck pain. Initial exam showed a shortening of the left leg - Patient denies previous episodes, or recent dizziness - She does admit to prior urinary tract infections, and had a WBC count of 12.5 on arrival, now 7.5, febrile with a temp max of 37.6 C, now afebrile - Consequently fracture of left hip - Now post-op day #[address] repair [address] 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 - Continues on Protonix here - Complicating factor of a known hiatal hernia Plan: Continue PPI, treat symptoms (6) Hiatal hernia Impression: - Patient states this in her past medical history - Takes a PPI at home, continued here (7) Alcohol dependence Impression: - Patient is having uncontrolled headaches (migraines), nausea, and has sweaty palms on exam - She denies hallucinations, anxiety, tremors, or neuropathy pain - When asking about her history of ETOH, she admits to at least 3 cocktails, then states, "I don't keep track" - Will hold off on [facility] protocol for now, but will report to [facility] Hospitalist for overnight - Patient refuses to be served alcohol when asked Plan: Check GGT on labs in the AM, CMP, and be watchful of potential ETOH withdrawal
[2018-12-31] MEDS: SENNA 8.6 MG TABLET PO SCH ×2 (08:48→20:55)
[2018-12-31] MEDS: FEXOFENADINE 60 MG TABLET PO SCH (08:49)
[2018-12-31] MEDS: PANTOPRAZOLE 40 MG TABLET PO SCH ×2 (08:50→20:55)
[2018-12-31] MEDS: SODIUM CHLORIDE 0.65% NASAL SPRAY NAS SCH ×2 (08:51→20:57)
[2018-12-31] MEDS: DOCUSATE SODIUM 100 MG CAPSULE PO SCH ×2 (08:51→20:55)
[2018-12-31] MEDS ORDERED: HEPARIN 5,000 UNIT/ML VIAL SUBQ SCH (09:00)
--- NOTE | 2018-12-31 10:45 | PROVIDER PROGRESS NOTE ---
Subjective - Prog Note Date Prog Note Date: 12/31/18 Prog Note Time: 10:43 - Subjective Pt reports feeling: Improved (Usual post op pain. Up on floor with PT) Objective - Vital Signs/Intake & Output Vital Signs: Vital Signs x48h Temp Pulse Resp BP Pulse Ox 12/31/18 08:00 37.4 C 78 16 116/58 L 94 12/31/18 03:54 37.3 C 67 16 119/63 98 Intake & Output: Intake & Output 12/28/18 12/29/18 12/30/18 12/31/18 23:59 23:59 23:59 23:59 Intake Total 3307.500 1370 Output Total 500 2500 1400 Balance -500 807.500 -30 - Lab Results Fish Bones: 12/31/18 05:44 12/31/18 05:44 Other Labs: Lab Results x24hrs 12/31/18 12/31/18 12/31/18 Range/Units 05:44 05:44 05:44 WBC 7.5 (4.8-10.8) x10^3/uL RBC 2.90 L (4.20-5.40) 10^6/uL Hgb 9.5 L (12.0-16.0) g/dL Hct 28.3 L (37.0-47.0) % MCV 97.6 (81.0-99.0) fL MCH 32.8 H (27.0-31.0) pg MCHC 33.6 (32.0-36.0) g/dL RDW 12.2 (12.0-15.0) % Plt Count 160 (130-450) 10^3/uL MPV 9.2 (7.9-10.8) fL Neut # (Auto) 5.1 (1.5-6.6) 10^3/uL Lymph # (Auto) 1.5 (1.5-3.5) 10^3/uL [place] # (Auto) 0.8 (0.0-1.0) 10^3/uL Eos # (Auto) 0.1 (0.0-0.7) 10^3/uL Baso # (Auto) 0.0 (0.0-0.1) 10^3/uL Absolute Nucleated RBC 0.00 x10^3/uL Nucleated RBC % 0.0 /100WBC Sodium 141 (135-145) mmol/L Potassium 4.1 (3.5-5.0) mmol/L Chloride 105 (101-111) mmol/L Carbon Dioxide 27 (21-32) mmol/L Anion Gap 9.0 (6-13) BUN 10 (6-20) mg/dL Creatinine 0.8 (0.4-1.0) mg/dL Estimated GFR (MDRD) 70 L (>89) Glucose 111 H (70-100) mg/dL Calcium 8.3 L (8.5-10.3) mg/dL Magnesium 1.9 (1.7-2.8) mg/dL Total Bilirubin 0.6 (0.2-1.0) mg/dL AST 22 (10-42) IU/L ALT 14 (10-60) IU/L Alkaline Phosphatase 52 (42-121) IU/L Total Protein 5.5 L (6.7-8.2) g/dL Albumin 3.3 (3.2-5.5) g/dL Globulin 2.2 (2.1-4.2) g/dL Albumin/Globulin Ratio 1.5 (1.0-2.2) 25-OH Vitamin D Total (30-100) ng/mL TSH 0.28 L (0.34-5.60) uIU/mL Urine Color Urine Clarity (CLEAR) Urine pH (5.0-7.5) PH Ur Specific [place] (1.002-1.030) Urine Protein (NEGATIVE) mg/dL Urine Glucose (UA) (NEGATIVE) mg/dL Urine Ketones (NEGATIVE) mg/dL Urine Occult Blood (NEGATIVE) Urine Nitrite (NEGATIVE) Urine Bilirubin (NEGATIVE) Urine Urobilinogen (NORMAL) E.U./dL Ur Leukocyte Esterase (NEGATIVE) Urine RBC (0-5) /HPF Urine WBC (0-5) /HPF Ur Epithelial Cells (<= Few) /HPF Ur Squamous Epith Cells (<= Few) Urine Bacteria (None Seen) /HPF Urine Culture Comments Blood Type Blood Type Recheck Antibody Screen 12/30/18 12/30/18 12/30/18 Range/Units 20:45 11:16 05:00 WBC (4.8-10.8) x10^3/uL RBC (4.20-5.40) 10^6/uL Hgb (12.0-16.0) g/dL Hct (37.0-47.0) % MCV (81.0-99.0) fL MCH (27.0-31.0) pg MCHC (32.0-36.0) g/dL RDW (12.0-15.0) % Plt Count (130-450) 10^3/uL MPV (7.9-10.8) fL Neut # (Auto) (1.5-6.6) 10^3/uL Lymph # (Auto) (1.5-3.5) 10^3/uL [place] # (Auto) (0.0-1.0) 10^3/uL Eos # (Auto) (0.0-0.7) 10^3/uL Baso # (Auto) (0.0-0.1) 10^3/uL Absolute Nucleated RBC x10^3/uL Nucleated RBC % /100WBC Sodium (135-145) mmol/L Potassium (3.5-5.0) mmol/L Chloride (101-111) mmol/L Carbon Dioxide (21-32) mmol/L Anion Gap (6-13) BUN (6-20) mg/dL Creatinine (0.4-1.0) mg/dL Estimated GFR (MDRD) (>89) Glucose (70-100) mg/dL Calcium (8.5-10.3) mg/dL Magnesium (1.7-2.8) mg/dL Total Bilirubin (0.2-1.0) mg/dL AST (10-42) IU/L ALT (10-60) IU/L Alkaline Phosphatase (42-121) IU/L Total Protein (6.7-8.2) g/dL Albumin (3.2-5.5) g/dL Globulin (2.1-4.2) g/dL Albumin/Globulin Ratio (1.0-2.2) 25-OH Vitamin D Total (30-100) ng/mL TSH (0.34-5.60) uIU/mL Urine Color YELLOW Urine Clarity CLEAR (CLEAR) Urine pH 6.0 (5.0-7.5) PH Ur Specific [place] <=1.005 (1.002-1.030) Urine Protein NEGATIVE (NEGATIVE) mg/dL Urine Glucose (UA) NEGATIVE (NEGATIVE) mg/dL Urine Ketones NEGATIVE (NEGATIVE) mg/dL Urine Occult Blood TRACE-INTA (NEGATIVE) Urine Nitrite NEGATIVE (NEGATIVE) Urine Bilirubin NEGATIVE (NEGATIVE) Urine Urobilinogen 0.2 (NORMAL) (NORMAL) E.U./dL Ur Leukocyte Esterase NEGATIVE (NEGATIVE) Urine RBC None Seen (0-5) /HPF Urine WBC 4-5 (0-5) /HPF Ur Epithelial Cells RARE Transitional (<= Few) /HPF Ur Squamous Epith Cells NONE SEEN (<= Few) Urine Bacteria None Seen (None Seen) /HPF Urine Culture Comments NOT INDICATED Blood Type B POSITIVE Blood Type Recheck B POSITIVE Antibody Screen NEGATIVE 12/30/18 Range/Units 05:00 WBC (4.8-10.8) x10^3/uL RBC (4.20-5.40) 10^6/uL Hgb (12.0-16.0) g/dL Hct (37.0-47.0) % MCV (81.0-99.0) fL MCH (27.0-31.0) pg MCHC (32.0-36.0) g/dL RDW (12.0-15.0) % Plt Count (130-450) 10^3/uL MPV (7.9-10.8) fL Neut # (Auto) (1.5-6.6) 10^3/uL Lymph # (Auto) (1.5-3.5) 10^3/uL [place] # (Auto) (0.0-1.0) 10^3/uL Eos # (Auto) (0.0-0.7) 10^3/uL Baso # (Auto) (0.0-0.1) 10^3/uL Absolute Nucleated RBC x10^3/uL Nucleated RBC % /100WBC Sodium (135-145) mmol/L Potassium (3.5-5.0) mmol/L Chloride (101-111) mmol/L Carbon Dioxide (21-32) mmol/L Anion Gap (6-13) BUN (6-20) mg/dL Creatinine (0.4-1.0) mg/dL Estimated GFR (MDRD) (>89) Glucose (70-100) mg/dL Calcium (8.5-10.3) mg/dL Magnesium (1.7-2.8) mg/dL Total Bilirubin (0.2-1.0) mg/dL AST (10-42) IU/L ALT (10-60) IU/L Alkaline Phosphatase (42-121) IU/L Total Protein (6.7-8.2) g/dL Albumin (3.2-5.5) g/dL Globulin (2.1-4.2) g/dL Albumin/Globulin Ratio (1.0-2.2) 25-OH Vitamin D Total 39 (30-100) ng/mL TSH (0.34-5.60) uIU/mL Urine Color Urine Clarity (CLEAR) Urine pH (5.0-7.5) PH Ur Specific [place] (1.002-1.030) Urine Protein (NEGATIVE) mg/dL Urine Glucose (UA) (NEGATIVE) mg/dL Urine Ketones (NEGATIVE) mg/dL Urine Occult Blood (NEGATIVE) Urine Nitrite (NEGATIVE) Urine Bilirubin (NEGATIVE) Urine Urobilinogen (NORMAL) E.U./dL Ur Leukocyte Esterase (NEGATIVE) Urine RBC (0-5) /HPF Urine WBC (0-5) /HPF Ur Epithelial Cells (<= Few) /HPF Ur Squamous Epith Cells (<= Few) Urine Bacteria (None Seen) /HPF Urine Culture Comments Blood Type Blood Type Recheck Antibody Screen - Other Results/Comments Other Results/Comments: EXAM: Dressing intact. Able to weight bear in left. Mild pain with hip motion. N/V ok distally Assessment/Plan - Problem List (1) Fracture of left hip Impression: Satis post op PLAN: Mobilize as tolerated. THR precautions. Qualifiers: Encounter type: initial encounter
[2018-12-31] MEDS: ONDANSETRON 4 MG/2 ML VIAL IVP PRN ×2 (11:35→16:49)
[2018-12-31] MEDS ORDERED: DEXAMETHASONE 10 MG/ML VIAL IVP SCH (17:00)
[2018-12-31] MEDS: OXYMETAZOLINE HCL 100 SPRAYS BOTTLE NAS SCH ×2 (18:01→20:57)
[2018-12-31] MEDS: METOCLOPRAMIDE 10 MG/2 ML VIAL IVP SCH (19:38)
[2018-12-31] MEDS: GABAPENTIN 100 MG CAPSULE PO SCH (20:56)
[2018-12-31] MEDS ORDERED: OXYMETAZOLINE HCL 100 SPRAYS BOTTLE NAS SCH (21:00)
[2019-01-01] MEDS: SODIUM CHLORIDE FLUSH 0.9% 10 ML SYRINGE IVP SCH ×2 (00:26→08:29)
[2019-01-01] MEDS: ACETAMINOPHEN 325 MG TABLET PO PRN ×3 (00:54→18:39)
[2019-01-01] MEDS: oxyCODONE 5 MG TABLET PO PRN ×3 (00:54→18:39)
[2019-01-01] MEDS: METOCLOPRAMIDE 10 MG/2 ML VIAL IVP SCH ×2 (00:55→06:27)
[2019-01-01] MEDS: DEXAMETHASONE 10 MG/ML VIAL IVP SCH ×2 (00:55→06:33)
[2019-01-01 05:29] LABS: BASOPHILS % (AUTO) 0.2 %; HGB - HEMOGLOBIN 10.7 g/dL (12.0-16.0); LYMPHOCYTES # (AUTO) 0.6 10^3/uL (1.5-3.5); LYMPHOCYTES % (AUTO) 6.8 %; MEAN CORPUSCULAR HEMOGLOBIN 33.6 pg (27.0-31.0); MEAN CORPUSCULAR HGB CONC 34.5 g/dL (32.0-36.0); MEAN CORPUSCULAR VOLUME 97.5 fL (81.0-99.0); MEAN PLATELET VOLUME 9.3 fL (7.9-10.8); MONOCYTES # (AUTO) 0.2 10^3/uL (0.0-1.0); MONOCYTES % (AUTO) 2.7 %; NEUTROPHILS # (AUTO) 7.2 10^3/uL (1.5-6.6); NEUTROPHILS % (AUTO) 89.8 %; PLT - PLATELET COUNT 181 10^3/uL (130-450); RED BLOOD COUNT 3.18 10^6/uL (4.20-5.40); RED CELL DISTRIBUTION WIDTH 11.8 % (12.0-15.0)
[2019-01-01 05:46] LABS: ALBUMIN 3.4 g/dL (3.2-5.5); ALBUMIN/GLOBULIN RATIO 1.2 (1.0-2.2); BILIRUBIN,TOTAL 0.6 mg/dL (0.2-1.0); CALCIUM 8.7 mg/dL (8.5-10.3); CREATININE 0.8 mg/dL (0.4-1.0); TOTAL PROTEIN 6.3 g/dL (6.7-8.2)
[2019-01-01] MEDS: SODIUM CHLORIDE 0.9% 1,000 ML IV SCH (06:26)
[2019-01-01] MEDS: OXYMETAZOLINE HCL 100 SPRAYS BOTTLE NAS SCH ×2 (08:16→21:33)
[2019-01-01] MEDS: SODIUM CHLORIDE 0.65% NASAL SPRAY NAS SCH ×2 (08:16→21:34)
[2019-01-01] MEDS: SENNA 8.6 MG TABLET PO SCH ×2 (08:16→21:32)
[2019-01-01] MEDS: DOCUSATE SODIUM 100 MG CAPSULE PO SCH ×2 (08:16→21:31)
[2019-01-01] MEDS: FEXOFENADINE 60 MG TABLET PO SCH (08:17)
[2019-01-01] MEDS: PANTOPRAZOLE 40 MG TABLET PO SCH ×2 (08:17→21:31)
[2019-01-01] MEDS: ENOXAPARIN 40 MG/0.4 ML SYRINGE SUBQ SCH (08:17)
--- NOTE | 2019-01-01 11:30 | PROVIDER PROGRESS NOTE ---
Subjective - Prog Note Date Prog Note Date: 01/01/19 Prog Note Time: 11:27 - Subjective Pt reports feeling: Improved (Less pain.) Objective - Vital Signs/Intake & Output Vital Signs: Vital Signs x48h Temp Pulse Resp BP Pulse Ox 01/01/19 07:25 36.9 C 64 16 146/68 H 97 Intake & Output: Intake & Output 12/29/18 12/30/18 12/31/18 01/01/19 23:59 23:59 23:59 23:59 Intake Total 3307.500 3213.333 1603.267 Output Total 500 2500 4750 1150 Balance -500 807.500 -1536.667 453.267 - Lab Results Fish Bones: 01/01/19 04:56 01/01/19 04:56 Other Labs: Lab Results x24hrs 01/01/19 01/01/19 Range/Units 04:56 04:56 WBC 8.0 (4.8-10.8) x10^3/uL RBC 3.18 L (4.20-5.40) 10^6/uL Hgb 10.7 L (12.0-16.0) g/dL Hct 31.0 L (37.0-47.0) % MCV 97.5 (81.0-99.0) fL MCH 33.6 H (27.0-31.0) pg MCHC 34.5 (32.0-36.0) g/dL RDW 11.8 L (12.0-15.0) % Plt Count 181 (130-450) 10^3/uL MPV 9.3 (7.9-10.8) fL Neut # (Auto) 7.2 H (1.5-6.6) 10^3/uL Lymph # (Auto) 0.6 L (1.5-3.5) 10^3/uL [place] # (Auto) 0.2 (0.0-1.0) 10^3/uL Eos # (Auto) 0.0 (0.0-0.7) 10^3/uL Baso # (Auto) 0.0 (0.0-0.1) 10^3/uL Absolute Nucleated RBC 0.00 x10^3/uL Nucleated RBC % 0.0 /100WBC Sodium 140 (135-145) mmol/L Potassium 4.0 (3.5-5.0) mmol/L Chloride 105 (101-111) mmol/L Carbon Dioxide 25 (21-32) mmol/L Anion Gap 10.0 (6-13) BUN 10 (6-20) mg/dL Creatinine 0.8 (0.4-1.0) mg/dL Estimated GFR (MDRD) 70 L (>89) Glucose 176 H (70-100) mg/dL Calcium 8.7 (8.5-10.3) mg/dL Total Bilirubin 0.6 (0.2-1.0) mg/dL GGT 11 (8-38) IU/L AST 20 (10-42) IU/L ALT 13 (10-60) IU/L Alkaline Phosphatase 56 (42-121) IU/L Total Protein 6.3 L (6.7-8.2) g/dL Albumin 3.4 (3.2-5.5) g/dL Globulin 2.9 (2.1-4.2) g/dL Albumin/Globulin Ratio 1.2 (1.0-2.2) - Other Results/Comments Other Results/Comments: EXAM: Dressing- intact. Up in chair without problem. N/V ok distally Assessment/Plan - Problem List (1) Fracture of left hip Impression: Satis post op PLAN: Mobilize in PT as toelerated. THR precautions. ASA for DVT prophylaxis. Follow up in 2 weeks in clinic for lucie out, new XR. Qualifiers: Encounter type: initial encounter
[2019-01-01 13:41] LABS: HB2 TOTAL 11.2 g/dL; HEMOGLOBIN A1C 0.44 g/dL; HEMOGLOBIN A1C % 5.7 % (4.6-6.2)
--- NOTE | 2019-01-01 14:35 | PROVIDER PROGRESS NOTE ---
Subjective - Prog Note Date Prog Note Date: 01/01/19 Prog Note Time: 14:32 - Subjective Pt reports feeling: Improved Subjective: Lois is feeling much better as compared to yesterday. She denies chest pain, nausea, vomiting, a new rash, or a new cough. Current Medications - Current Medications Current Medications: Active Medications: Acetaminophen (Tylenol) 650 - 975 mg PO Q4HR PRN Docusate Sodium (Colace 100mg Capsule) 100 mg PO BID REX Enoxaparin Sodium (Lovenox) 40 mg SUBQ DAILY REX Fexofenadine HCl (Ella) 60 mg PO DAILY REX Gabapentin (Neurontin) 200 mg PO QPM REX Lactulose (Enulose) 10 gm PO DAILY REX Oxycodone HCl (Roxicodone) 5 mg PO Q4HR PRN Oxymetazoline HCl (Afrin) 2 sprays JOSE ARMANDO BID REX Pantoprazole Sodium (Protonix) 40 mg PO BID REX Senna (Senokot) 17.2 mg PO Q12H REX Sodium Chloride ([place]) 2 sprays JOSE ARMANDO BID REX HOME meds: Gabapentin 200 - 300 mg PO QPM 12/30/18 Pantoprazole Sodium 20 mg PO BIDAC 12/30/18 raNITIdine [Zantac] 150 mg PO BID 12/30/18 Objective - Vital Signs/Intake & Output Reviewed Vital Signs: Yes Vital Signs: Vital Signs x48h Temp Pulse Resp BP Pulse Ox 01/01/19 07:25 36.9 C 64 16 146/68 H 97 Intake & Output: Intake & Output 12/29/18 12/30/18 12/31/18 01/01/19 23:59 23:59 23:59 23:59 Intake Total 3307.500 3213.333 2103.267 Output Total 500 2500 4750 1150 Balance -500 807.500 -1536.667 953.267 - Objective General Appearance: positive: No acute distress, Alert Eyes Bilateral: positive: PERRL, No lid inflammation ENT: positive: ENT inspection nml, Pharynx nml, No signs of dehydration Neck: positive: Thyroid nml, No JVD, Trachea midline Respiratory: positive: Chest non-tender, No respiratory distress, Breath sounds nml Cardiovascular: positive: Regular rate & rhythm, No gallop Peripheral Pulses: 1+ Radial (R), 1+ Radial (L) Abdomen: positive: Non-tender, Nml bowel sounds Back: positive: Nml inspection Skin: positive: No rash, Warm, Dry, Other (bronze toned) Extremities: positive: No pedal edema, Joint swelling (left hip swelling) Neurologic/Psychiatric: positive: Oriented x3, CN's nml (2-12), Motor nml, Sensation nml, Mood/affect nml Reflexes: Bicep (R): 3+, Bicep (L): 3+, Ankle (R): 1+, Ankle (L): 1+ - Lab Results Fish Bones: 01/01/19 04:56 01/01/19 04:56 Other Labs: Lab Results x24hrs 01/01/19 01/01/19 01/01/19 Range/Units 04:56 04:56 04:56 WBC 8.0 (4.8-10.8) x10^3/uL RBC 3.18 L (4.20-5.40) 10^6/uL Hgb 10.7 L (12.0-16.0) g/dL Hct 31.0 L (37.0-47.0) % MCV 97.5 (81.0-99.0) fL MCH 33.6 H (27.0-31.0) pg MCHC 34.5 (32.0-36.0) g/dL RDW 11.8 L (12.0-15.0) % Plt Count 181 (130-450) 10^3/uL MPV 9.3 (7.9-10.8) fL Neut # (Auto) 7.2 H (1.5-6.6) 10^3/uL Lymph # (Auto) 0.6 L (1.5-3.5) 10^3/uL [place] # (Auto) 0.2 (0.0-1.0) 10^3/uL Eos # (Auto) 0.0 (0.0-0.7) 10^3/uL Baso # (Auto) 0.0 (0.0-0.1) 10^3/uL Absolute Nucleated RBC 0.00 x10^3/uL Nucleated RBC % 0.0 /100WBC Sodium 140 (135-145) mmol/L Potassium 4.0 (3.5-5.0) mmol/L Chloride 105 (101-111) mmol/L Carbon Dioxide 25 (21-32) mmol/L Anion Gap 10.0 (6-13) BUN 10 (6-20) mg/dL Creatinine 0.8 (0.4-1.0) mg/dL Estimated GFR (MDRD) 70 L (>89) Glucose 176 H (70-100) mg/dL Glycated Hemoglobin 5.7 (4.6-6.2) % Estim Average Glucose 117 H (70-100) Calcium 8.7 (8.5-10.3) mg/dL Total Bilirubin 0.6 (0.2-1.0) mg/dL GGT 11 (8-38) IU/L AST 20 (10-42) IU/L ALT 13 (10-60) IU/L Alkaline Phosphatase 56 (42-121) IU/L Total Protein 6.3 L (6.7-8.2) g/dL Albumin 3.4 (3.2-5.5) g/dL Globulin 2.9 (2.1-4.2) g/dL Albumin/Globulin Ratio 1.2 (1.0-2.2) ABX Reporting Has patient been on IV antibiotics over the past 48 hours?: No Assessment/Plan - Problem List (1) Postoperative pain, acute, hip Impression: - Patient is comfortable while not moving, but getting up to the chair today for meals - Underwent an OT evaluation, who recommends SNF verses home with home health - Patient is planning on returning home with family to help & home health therapy Plan: Continue to treat with PO oxycodone, tylenol, monitor for improvement Qualifiers: Laterality: left Qualified Code(s): G89.18 - Other acute postprocedural pain; M25.552 - Pain in left hip (2) Fracture of left hip Impression: - She admits to a mechanical fall at home while carrying some dog food bags - Imaging confirmed this finding with an acute transcervical fracture of the left femur with mild foreshortening - Dr. Coleman performed a left hip repair and documented approximately 500 mL blood loss and no post-op complications - Today admits to consuming daily "cocktails" of likely 3-5 drinks per day, so likely a contributing factor to this fall Plan: Continue post op cares Qualifiers: Encounter type: initial encounter (3) Fall Impression: - Patient arrived via EMS to the ER and reported, "I was walking, tripped over dog, landing on left hip/leg at about 6:30pm tonight". She denied striking her head, a loss of consciousness, or head or neck pain. Initial exam showed a shortening of the left leg - Patient denies previous episodes, or recent dizziness - She does admit to prior urinary tract infections, and had a WBC count of 12.5 on arrival, now 7.5, febrile with a temp max of 37.6 C, now afebrile - Consequently fracture of left hip - Now post-op day #2 left hip repair with Dr. 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 - Continues on Protonix here - Complicating factor of a known hiatal hernia Plan: Continue PPI, treat symptoms (5) Hiatal hernia Impression: - Patient states this in her past medical history - Takes a PPI at home, continued here (6) Migraine Impression: - Patient states that her migraine started shortly after lunch, and is accompanied by nausea, sweating, and triggered by bright lights - Patient states that this is not uncommon for her, and states that since her cervical spine surgery, she suffers at least monthly with migraines - Dilaudid and tylenol were not working - Afrin spray and Ella continue - Status post abortive therapy by giving IV reglan, IV decadron (x3 doses Q6H), and offered alcohol, but she refused Plan: Continue to monitor, now resolved (7) Constipation Impression: - Patient admits to no BMs since Saturday prior to her fall (4 days ago) - Now post op day # 2, still no luck - Admits to + flatus - Already on Miralax, senna, and Docusate Plan: Continue to monitor, add daily Lactulose Qualifiers: Constipation type: slow transit constipation Qualified Code(s): K59.01 - Slow transit constipation
[2019-01-01] MEDS: LACTULOSE 10 GM /15 ML UDC PO SCH (16:14)
[2019-01-01] MEDS: GABAPENTIN 100 MG CAPSULE PO SCH (21:31)
[2019-01-02] MEDS: PANTOPRAZOLE 40 MG TABLET PO SCH ×2 (08:04→20:45)
[2019-01-02] MEDS: OXYMETAZOLINE HCL 100 SPRAYS BOTTLE NAS SCH ×2 (08:10→21:16)
[2019-01-02] MEDS: ENOXAPARIN 40 MG/0.4 ML SYRINGE SUBQ SCH (08:12)
[2019-01-02] MEDS: LACTULOSE 10 GM /15 ML UDC PO SCH (08:57)
[2019-01-02] MEDS: DOCUSATE SODIUM 100 MG CAPSULE PO SCH ×2 (08:57→20:45)
[2019-01-02] MEDS: FEXOFENADINE 60 MG TABLET PO SCH (08:57)
[2019-01-02] MEDS: SODIUM CHLORIDE 0.65% NASAL SPRAY NAS SCH ×2 (08:58→21:14)
[2019-01-02] MEDS: SENNA 8.6 MG TABLET PO SCH ×2 (09:01→20:45)
[2019-01-02] MEDS ORDERED: BISACODYL 10 MG SUPP PR SCH (12:57)
[2019-01-02] MEDS: oxyCODONE 5 MG TABLET PO PRN ×2 (13:21→22:17)
[2019-01-02] MEDS: ACETAMINOPHEN 325 MG TABLET PO PRN ×2 (13:21→22:22)
--- NOTE | 2019-01-02 14:12 | PROVIDER PROGRESS NOTE ---
Subjective - Prog Note Date Prog Note Date: 01/02/19 Prog Note Time: 14:10 - Subjective Pt reports feeling: Improved Subjective: Lois has no complaints except for still not moving bowels. She denies new pain or bleeding with left hip post op site, chest pain, nausea, vomiting, a rash, or a new cough. She is still eating well despite not moving her bowels. Current Medications - Current Medications Current Medications: Active Medications: Acetaminophen (Tylenol) 650 - 975 mg PO Q4HR PRN Cholecalciferol (Vitamin D3) 2,000 unit PO DAILY REX Docusate Sodium (Colace 100mg Capsule) 100 mg PO BID REX Enoxaparin Sodium (Lovenox) 40 mg SUBQ DAILY REX Fexofenadine HCl (Ella) 60 mg PO DAILY REX Gabapentin (Neurontin) 200 mg PO QPM REX Lactulose (Enulose) 10 gm PO DAILY REX Oxycodone HCl (Roxicodone) 5 mg PO Q4HR PRN Oxymetazoline HCl (Afrin) 2 sprays JOSE ARMANDO BID REX Pantoprazole Sodium (Protonix) 40 mg PO 0700,2100 REX Prochlorperazine Edisylate (Compazine Inj) 10 mg IVP Q6HR PRN Senna (Senokot) 17.2 mg PO Q12H REX Sodium Chloride ([place]) 2 sprays JOSE ARMANDO BID [facility] HOME meds: Gabapentin 200 - 300 mg PO QPM 12/30/18 Pantoprazole Sodium 20 mg PO BIDAC 12/30/18 raNITIdine [Zantac] 150 mg PO BID 12/30/18 Objective - Vital Signs/Intake & Output Reviewed Vital Signs: Yes Vital Signs: Vital Signs x48h Temp Pulse Resp BP Pulse Ox 01/02/19 08:00 37.1 C 71 18 143/75 H 96 Intake & Output: Intake & Output 12/30/18 12/31/18 01/01/19 01/02/19 23:59 23:59 23:59 23:59 Intake Total 3307.500 3213.333 3303.267 1150 Output Total 2500 4750 2000 650 Balance 807.500 -1365.804 6922.267 500 - Objective General Appearance: positive: No acute distress, Alert Eyes Bilateral: positive: PERRL ENT: positive: Pharynx nml, No signs of dehydration Neck: positive: Thyroid nml, No JVD, Trachea midline Respiratory: positive: Chest non-tender, No respiratory distress, Breath sounds nml Cardiovascular: positive: Regular rate & rhythm, No gallop Peripheral Pulses: 1+ Radial (R), 1+ Radial (L), 1+ Dorsalis pedis (R), 1+ Dorsalis pedis (L) Abdomen: positive: Non-tender, Nml bowel sounds Back: positive: Nml inspection Skin: positive: Color nml, No rash, Warm, Dry Extremities: positive: Joint swelling (left hip post-op swelling) Neurologic/Psychiatric: positive: Oriented x3, CN's nml (2-12), Motor nml, Sensation nml, Mood/affect nml Reflexes: Bicep (R): 3+, Bicep (L): 3+ - Lab Results Fish Bones: 01/01/19 04:56 01/01/19 04:56 ABX Reporting Has patient been on IV antibiotics over the past 48 hours?: No Assessment/Plan - Problem List (1) Postoperative pain, acute, hip Impression: - Patient is comfortable while not moving, and getting up to the chair for meals, also into the bathroom while attempting to move her bowels - Underwent an OT evaluation, who recommends SNF verses home with home health - Patient is planning on returning home with family to help & home health therapy - Stopped Lovenox daily, starting on ASA full dose in the AM for DVT prophylaxis - Also starting Vitamin D3 today, Fosomax ~3-4 weeks Plan: Continue to treat with PO oxycodone, tylenol, monitor for improvement Qualifiers: Laterality: left Qualified Code(s): G89.18 - Other acute postprocedural pain; M25.552 - Pain in left hip (2) Constipation Impression: - Patient admits to no BMs since Saturday prior to her fall (5 days ago) - Now post op day # 3, still no luck - Admits to + flatus - Already on Miralax, senna, Docusate and added Lactulose yesterday Plan: Continue to monitor, attempt suppository Qualifiers: Constipation type: slow transit constipation Qualified Code(s): K59.01 - Slow transit constipation (3) Fracture of left hip Impression: - She admits to a mechanical fall at home while carrying some dog food bags - Imaging confirmed this finding with an acute transcervical fracture of the left femur with mild foreshortening - Dr. Coleman performed a left hip repair and documented approximately 500 mL blood loss and no post-op complications - Admitted to consuming daily "cocktails" of likely 3-5 drinks per day, so likely a contributing factor to this fall, no s/s of ETOH w/d - Starting Vitamin D3 today, with plans to start her on Fosomax in the next month Plan: Continue post op cares Qualifiers: Encounter type: initial encounter (4) Fall Impression: - Patient arrived via EMS to the ER and reported, "I was walking, tripped over dog, landing on left hip/leg at about 6:30pm tonight". She denied striking her head, a loss of consciousness, or head or neck pain. Initial exam showed a shortening of the left leg - Patient denies previous episodes, or recent dizziness - She does admit to prior urinary tract infections, and had a WBC count of 12.5 on arrival, now 7.5, febrile with a temp max of 37.6 C, now afebrile - No s/s of infection - Consequently fracture of left hip - Now post-op day #3 left hip repair with Dr. 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 - Continues on Protonix here - Complicating factor of a known hiatal hernia Plan: Continue PPI, treat symptoms (6) Hiatal hernia Impression: - Patient states this in her past medical history - Takes a PPI at home, continued here (7) Migraine Impression: - Patient states that her migraine started shortly after lunch, and is acco mpanied by nausea, sweating, and triggered by bright lights - Patient states that this is not uncommon for her, and states that since her cervical spine surgery, she suffers at least monthly with migraines - Dilaudid and tylenol were not working - Afrin spray and Ella continue - Status post abortive therapy by giving IV reglan, IV decadron (x3 doses Q6H), and offered alcohol, but she refused Plan: Continue to monitor, now resolved
[2019-01-02] MEDS: CHOLECALCIFEROL 1,000 UNIT TABLET PO SCH (14:28)
[2019-01-02] MEDS: GABAPENTIN 100 MG CAPSULE PO SCH ×2 (20:45→21:18)
[2019-01-03] MEDS: oxyCODONE 5 MG TABLET PO PRN ×2 (05:29→13:18)
[2019-01-03] MEDS: PANTOPRAZOLE 40 MG TABLET PO SCH (05:30)
[2019-01-03 06:23] LABS: BASOPHILS % (AUTO) 0.7 %; EOSINOPHILS # (AUTO) 0.3 10^3/uL (0.0-0.7); EOSINOPHILS % (AUTO) 5.4 %; HGB - HEMOGLOBIN 10.1 g/dL (12.0-16.0); LYMPHOCYTES # (AUTO) 1.8 10^3/uL (1.5-3.5); LYMPHOCYTES % (AUTO) 31.5 %; MEAN CORPUSCULAR HEMOGLOBIN 33.1 pg (27.0-31.0); MEAN CORPUSCULAR HGB CONC 34.1 g/dL (32.0-36.0); MEAN PLATELET VOLUME 9.3 fL (7.9-10.8); MONOCYTES # (AUTO) 0.5 10^3/uL (0.0-1.0); MONOCYTES % (AUTO) 8.8 %; NEUTROPHILS # (AUTO) 3.1 10^3/uL (1.5-6.6); NEUTROPHILS % (AUTO) 53.3 %; PLT - PLATELET COUNT 222 10^3/uL (130-450); RED BLOOD COUNT 3.05 10^6/uL (4.20-5.40); RED CELL DISTRIBUTION WIDTH 12.2 % (12.0-15.0); WHITE BLOOD COUNT 5.8 x10^3/uL (4.8-10.8)
[2019-01-03 06:36] LABS: ALBUMIN 3.1 g/dL (3.2-5.5); BILIRUBIN,TOTAL 0.8 mg/dL (0.2-1.0); CALCIUM 8.8 mg/dL (8.5-10.3); CREATININE 0.9 mg/dL (0.4-1.0); MAGNESIUM 1.9 mg/dL (1.7-2.8); TOTAL PROTEIN 6.1 g/dL (6.7-8.2)
[2019-01-03] MEDS ORDERED: ASPIRIN 325 MG TABLET PO SCH (08:00)
[2019-01-03 08:48] VITALS: BP 119/67
--- NOTE | 2019-01-03 09:17 | DISCHARGE SUMMARY ---
Discharge Summary Admit Date: 12/29/18 Discharge Date: 01/03/19 Discharging Provider: HERMELINDO Lopez Primary Care Provider: Urszula Engel/ Padma Cordova MD Code Status: Attempt Resuscitation Condition at Discharge: Good Discharge Disposition: Home Health Service - DIAGNOSES Admission Diagnoses: Fracture of left hip Pre-op evaluation Chronic lower back pain GERD (gastroesophageal reflux disease) Discharge Diagnoses with Status of Each Condition: Postoperative pain, acute, hip- stable, continued on pain medication Constipation- resolved Fracture of left hip- New on this admission, stable Fall- stable GERD (gastroesophageal reflux disease)- chronic, stable H/O hiatal hernia- chronic, stable Migraine- chronic, stable, resolved Osteoporosis- chronic, stable, continue with vitamin D3, start on Fosomax in one month - HPI History of Present Illness: HPI per Dr. Espino: This is a 73 year old female with past medical history significant for chronic lower back pain, and GERD who presents from home after she had a fall. She reports falling down two steps earlier today while she was carrying dog food and going to her garage. She fell on her left hip and it took her two hours to crawl to the nearest phone to call for help. She currently reports the pain is 8/10, located over left hip, achy in nature, and radiates down her leg to the knee. She just received Morphine with minor relief. She denies any syncope or loss of consciousness prior to the fall and can recall the events leading up to it. She has recently been seeing a [facility] in [place] for her chronic lower back pain. She is actually scheduled for an MRI this week and to receive steroid injections. She does have occasional neuropathy of the lower extremities for which she takes Gabapentin. She reports being quite healthy overall and is very active. She used to ski a lot but now goes hiking and swimming without chest pain or dyspnea. She currently denies chest pain, dyspnea or palpitations. She reports a remote history of some type of arrhythmia when she was menopausal which she was told is associated with menopause. She reports no history of diabetes or renal disease. In the emergency department, she underwent imaging of her left hip which revealed an acute transcervical fracture of the left femur. Orthopedics was contacted by the ER physician and recommended admission for intervention. She does not have her living will documents with her but she states she does want CPR if anything were to happen. - CONSULTS | PROCEDURES Consultations: Ortho surgery- Dr. Coleman Procedures: Left cementless Synergy bipolar endoprosthesis Pre-Op Diagnosis: Closed, displaced left fempral neck hip fracture Procedure Performed: Left synergy cementless biop[olar endoprosthesis Post Op Diagnosis: Same - Procedure Note Primary Surgeon: Donovan Coleman MD Anesthesia Provider: Jesenia Henry CRNA Anesthesia Technique: General ET tube IV Fluids (mL): 1,300 Estimated Blood Loss (mL): 500 Complications: None - HOSPITAL COURSE Hospital Course: (1) Postoperative pain, acute, hip- Patient is comfortable while not moving, and getting up to the chair for meals, also into the bathroom while attempting to move her bowels - Underwent an OT evaluation, who recommends SNF verses home with home health - Patient is planning on returning home with family to help & home health ther apy - Stopped Lovenox daily, starting on ASA full dose in the AM for DVT prophylaxis - Also started on Vitamin D3, Fosomax ~3-4 weeks from discharge - Continue to treat with PO oxycodone, tylenol, monitor for improvement (2) Constipation- Patient a resolution of her constipation after a suppository - Already on Miralax, senna, Docusate and added Lactulose (3) Fracture of left hip- She admits to a mechanical fall at home while carrying some dog food bags - Imaging confirmed this finding with an acute transcervical fracture of the left femur with mild foreshortening - Dr. Coleman performed a left hip repair and documented approximately 500 mL blood loss and no post-op complications - Admitted to consuming daily "cocktails" of likely 3-5 drinks per day, so likely a contributing factor to this fall, no s/s of ETOH w/d - Started on Vitamin D3, with plans to start her on Fosomax in the next month (4) Fall- Patient arrived via EMS to the ER and reported, "I was walking, tripped over dog, landing on left hip/leg at about 6:30pm tonight". She denied striking her head, a loss of consciousness, or head or neck pain. Initial exam showed a shortening of the left leg - Patient denies previous episodes, or recent dizziness - She does admit to prior urinary tract infections, and had a WBC count of 12.5 on arrival, now 7.5, febrile with a temp max of 37.6 C, now afebrile - No s/s of infection - Consequently fracture of left hip - Now post-op after a left hip repair with Dr. 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 - Continues on Protonix here - Complicating factor of a known hiatal hernia (6) Hiatal hernia- Patient states this in her past medical history - Takes a PPI at home, continued here (7) Migraine- Patient states that her migraine started shortly after lunch, and is accompanied by nausea, sweating, and triggered by bright lights - Patient states that this is not uncommon for her, and states that since her cervical spine surgery, she suffers at least monthly with migraines - Dilaudid and tylenol were not working - Afrin spray and Ella continue - Status post abortive therapy by giving IV reglan, IV decadron (x3 doses Q6H), and offered alcohol, but she refused Disposition: The patient was medically stable and transported home with family and a walker where she will get home health PT services. - ALLERGIES Allergies/Adverse Reactions: Allergies Allergy/AdvReac Type Severity Reaction Status Date / Time Sulfa (Sulfonamide AdvReac Unknown Verified 12/29/18 21:50 Antibiotics) - MEDICATIONS Home Medications: Ambulatory Orders Medication Instructions Recorded Confirmed Gabapentin 200 - 300 mg PO QPM 12/30/18 12/30/18 Pantoprazole Sodium 20 mg PO BIDAC 12/30/18 12/30/18 raNITIdine [Zantac] 150 mg PO BID 12/30/18 12/30/18 Alendronate [Fosamax] 70 mg PO Q7D #7 tablet 01/03/19 Aspirin [Joel] 325 mg PO DAILYWM #30 tablet 01/03/19 Cholecalciferol (Vitamin D3) 2,000 unit PO DAILY #30 capsule 01/03/19 [Vitamin D] Senna [Senokot] 17.2 mg PO Q12H #60 tablet 01/03/19 oxyCODONE [Roxicodone] 5 mg PO Q4HR PRN #30 tablet 01/03/19 - PHYSICAL EXAM AT DISCHARGE General Appearance: positive: No acute distress, Alert Eyes Bilateral: positive: PERRL ENT: positive: Pharynx nml, No signs of dehydration Neck: positive: Thyroid nml, No JVD, Trachea midline Respiratory: positive: Chest non-tender, No respiratory distress, Breath sounds nml Cardiovascular: positive: Regular rate & rhythm, No gallop, Systolic murmur Peripheral Pulses: positive: 1+ Abdomen: positive: Non-tender, Nml bowel sounds Back: positive: Nml inspection Skin: positive: Color nml, No rash, Warm, Dry, Other (lucie CDI to left hip, no drainage, small area of erythema noted distal to lucie) Extremities: positive: Pedal edema, Joint swelling (left hip swelling) Neurologic/Psychiatric: positive: Oriented x3, CN's nml (2-12), Motor nml, Sensation nml, Mood/affect nml Reflexes: Bicep (R): 3+, Bicep (L): 3+ - LABS Result Diagrams: 01/03/19 06:09 01/03/19 06:09 - FOLLOW UP Follow Up: Disposition:Home Health Service Prescriptions: oxyCODONE [Roxicodone] 5 mg PO Q4HR PRN #30 tablet PRN Reason: Pain Alendronate [Fosamax] 70 mg PO Q7D #7 tablet Aspirin [Joel] 325 mg PO DAILYWM #30 tablet Cholecalciferol (Vitamin D3) [Vitamin D] 2,000 unit PO DAILY #30 capsule Senna [Senokot] 17.2 mg PO Q12H #60 tablet Activity Restrictions: Wt Bearing as Tolerated Health Concerns: Left hip fracture, constipation, pain management Plan of Treatment: Continue with physical therapy at home using a walker, Treat pain with oxycodone, or tylenol, Prevent constipation Care Goals: Prevent infection Prevent falls Assessment: You were admitted after falling resulting in a fractured left hip. This was surgically repaired by Dr. Coleman. - You had an uneventful post operative coarse. Physical therapy suggests that you get home PT, which has been ordered. Your walker has been delivered to your room that will need to take home. - You have been started on vitamin D3 supplement, and you should start taking Fosamax on January. - Please follow up with the outpatient orthopedic office in 2 weeks for x-rays and to remove lucie. - Use pain as your guide, and follow total hip precautions. - Please see your PCP provider within one week. - TIME SPENT Time Spent in Discharge (Minutes): 55
[2019-01-03] MEDS: FEXOFENADINE 60 MG TABLET PO SCH (09:19)
[2019-01-03] MEDS: CHOLECALCIFEROL 1,000 UNIT TABLET PO SCH (09:19)
[2019-01-03] MEDS: DOCUSATE SODIUM 100 MG CAPSULE PO SCH (09:26)
[2019-01-03] MEDS: SENNA 8.6 MG TABLET PO SCH (09:27)
[2019-01-03] MEDS: LACTULOSE 10 GM /15 ML UDC PO SCH (09:27)
[2019-01-03] MEDS: SODIUM CHLORIDE 0.65% NASAL SPRAY NAS SCH (09:28)
--- NOTE | 2019-01-03 11:21 | Discharge Plan ---
Discharge Plan Problem Reviewed?: Yes Disposition: Home Health Service Condition: Good Prescriptions: oxyCODONE [Roxicodone] 5 mg PO Q4HR PRN #30 tablet PRN Reason: Pain Alendronate [Fosamax] 70 mg PO Q7D #7 tablet Aspirin [Joel] 325 mg PO DAILYWM #30 tablet Cholecalciferol (Vitamin D3) [Vitamin D] 2,000 unit PO DAILY #30 capsule Senna [Senokot] 17.2 mg PO Q12H #60 tablet Diet: Regular Activity Restrictions: Wt Bearing as Tolerated Shower Restrictions: No Instruction Topics: Cefazolin injection, Oxycodone tablets or capsules Health Concerns: Left hip fracture constipation pain management Plan of Treatment: Continue with physical therapy at home using a walker Treat pain with oxycodone, or tylenol Prevent constipation Care Goals: Prevent infection Prevent falls Assessment: - You were admitted after falling resulting in a fractured left hip. This was surgically repaired by Dr. Coleman. - You had an uneventful post operative coarse. Physical therapy suggests that you get home PT, which has been ordered. Your walker has been delivered to your room that will need to take home. - You have been started on vitamin D3 supplement, and you should start taking Fosamax on January. - Please follow up with the outpatient orthopedic office in 2 weeks for x-rays and to remove lucie. - Use pain as your guide, and follow total hip precautions. - Please see your PCP provider within one week. Follow-Up Care: Home Health - PT No Smoking: If you smoke, Please STOP! Call for help.
--- NOTE | 2019-01-03 11:52 | PROVIDER PROGRESS NOTE ---
Subjective - Prog Note Date Prog Note Date: 01/03/19 Prog Note Time: 11:50 - Subjective Pt reports feeling: Improved Objective - Vital Signs/Intake & Output Vital Signs: Vital Signs x48h Temp Pulse Resp BP Pulse Ox 01/03/19 08:00 37.2 C 74 18 119/67 94 Intake & Output: Intake & Output 12/31/18 01/01/19 01/02/19 01/03/19 23:59 23:59 23:59 23:59 Intake Total 3213.333 3303.267 1590 500 Output Total 4750 2000 1100 301 Balance -4351.691 9515.267 490 199 - Lab Results Fish Bones: 01/03/19 06:09 01/03/19 06:09 Other Labs: Lab Results x24hrs 01/03/19 01/03/19 01/03/19 Range/Units 06:09 06:09 06:09 WBC (4.8-10.8) x10^3/uL RBC (4.20-5.40) 10^6/uL Hgb (12.0-16.0) g/dL Hct (37.0-47.0) % MCV (81.0-99.0) fL MCH (27.0-31.0) pg MCHC (32.0-36.0) g/dL RDW (12.0-15.0) % Plt Count (130-450) 10^3/uL MPV (7.9-10.8) fL Neut # (Auto) (1.5-6.6) 10^3/uL Lymph # (Auto) (1.5-3.5) 10^3/uL [place] # (Auto) (0.0-1.0) 10^3/uL Eos # (Auto) (0.0-0.7) 10^3/uL Baso # (Auto) (0.0-0.1) 10^3/uL Absolute Nucleated RBC x10^3/uL Nucleated RBC % /100WBC Sodium 140 (135-145) mmol/L Potassium 3.5 (3.5-5.0) mmol/L Chloride 101 (101-111) mmol/L Carbon Dioxide 26 (21-32) mmol/L Anion Gap 13.0 (6-13) BUN 14 (6-20) mg/dL Creatinine 0.9 (0.4-1.0) mg/dL Estimated GFR (MDRD) 61 L (>89) Glucose 133 H (70-100) mg/dL Calcium 8.8 (8.5-10.3) mg/dL Magnesium 1.9 (1.7-2.8) mg/dL Total Bilirubin 0.8 (0.2-1.0) mg/dL AST 19 (10-42) IU/L ALT 13 (10-60) IU/L Alkaline Phosphatase 52 (42-121) IU/L Total Protein 6.1 L (6.7-8.2) g/dL Albumin 3.1 L (3.2-5.5) g/dL Globulin 3.0 (2.1-4.2) g/dL Albumin/Globulin Ratio 1.0 (1.0-2.2) Free T4 1.43 (0.58-1.64) ng/dL Free T3 pg/mL 3.62 (2.5-3.9) pg/mL 01/03/19 Range/Units 06:09 WBC 5.8 (4.8-10.8) x10^3/uL RBC 3.05 L (4.20-5.40) 10^6/uL Hgb 10.1 L (12.0-16.0) g/dL Hct 29.6 L (37.0-47.0) % MCV 97.0 (81.0-99.0) fL MCH 33.1 H (27.0-31.0) pg MCHC 34.1 (32.0-36.0) g/dL RDW 12.2 (12.0-15.0) % Plt Count 222 (130-450) 10^3/uL MPV 9.3 (7.9-10.8) fL Neut # (Auto) 3.1 (1.5-6.6) 10^3/uL Lymph # (Auto) 1.8 (1.5-3.5) 10^3/uL [place] # (Auto) 0.5 (0.0-1.0) 10^3/uL Eos # (Auto) 0.3 (0.0-0.7) 10^3/uL Baso # (Auto) 0.0 (0.0-0.1) 10^3/uL Absolute Nucleated RBC 0.00 x10^3/uL Nucleated RBC % 0.0 /100WBC Sodium (135-145) mmol/L Potassium (3.5-5.0) mmol/L Chloride (101-111) mmol/L Carbon Dioxide (21-32) mmol/L Anion Gap (6-13) BUN (6-20) mg/dL Creatinine (0.4-1.0) mg/dL Estimated GFR (MDRD) (>89) Glucose (70-100) mg/dL Calcium (8.5-10.3) mg/dL Magnesium (1.7-2.8) mg/dL Total Bilirubin (0.2-1.0) mg/dL AST (10-42) IU/L ALT (10-60) IU/L Alkaline Phosphatase (42-121) IU/L Total Protein (6.7-8.2) g/dL Albumin (3.2-5.5) g/dL Globulin (2.1-4.2) g/dL Albumin/Globulin Ratio (1.0-2.2) Free T4 (0.58-1.64) ng/dL Free T3 pg/mL (2.5-3.9) pg/mL - Other Results/Comments Other Results/Comments: EXAM: Wound benign. Mild erythema but non tender with scant serosangious drainage seen. Good hip motiopn. Up on floor with walker Assessment/Plan - Problem List (1) Fracture of left hip Impression: Satis post op PLAN: discharge home with home PT. Follow up in clinic in 2 weeks for lucie out, new XR. ASA for DVT prophylaxis. Qualifiers: Encounter type: initial encounter
[2019-01-03] MEDS: ACETAMINOPHEN 325 MG TABLET PO PRN (13:17)
== END 2019-01-03 14:40 | disposition home health service (06) | DRG 470 ==
LOC: EDBD → EDUNIT# → ED 21:42 → MS2 23:20
PROVIDERS: ADMIT Internal Medicine; ATTEND Nurse Practitioner
PROC: 0SRS0JA Replacement of Left Hip Joint, Femoral Surface with Synthetic Substitute, Uncemented, Open Approach (ICD-10-PCS; principal; 2018-12-30 07:30)
DX: S72.032A Displaced midcervical fracture of left femur, initial encounter for closed fracture (principal); W18.31XA Fall on same level due to stepping on an object, initial encounter; M80.052A Age-related osteoporosis with current pathological fracture, left femur, initial encounter for fracture; W10.8XXA Fall (on) (from) other stairs and steps, initial encounter; Y92.008 Other place in unspecified non-institutional (private) residence as the place of occurrence of the external cause; K59.01 Slow transit constipation; R05 Cough; G43.909 Migraine, unspecified, not intractable, without status migrainosus; F10.20 Alcohol dependence, uncomplicated; K21.9 Gastro-esophageal reflux disease without esophagitis; K44.9 Diaphragmatic hernia without obstruction or gangrene; G89.29 Other chronic pain; M48.061 Spinal stenosis, lumbar region without neurogenic claudication; G57.93 Unspecified mononeuropathy of bilateral lower limbs; Z79.899 Other long term (current) drug therapy; Z86.79 Personal history of other diseases of the circulatory system; Z87.440 Personal history of urinary (tract) infections; Z87.828 Personal history of other (healed) physical injury and trauma
CPT/HCPCS: 36415; 71045; 72170; 73502; 80048; 80053; 81001; 82306; 82977; 83036; 83735; 84439; 84443; 84481; 85025; 85610; 85730; 86850; 86900; 86901; 93005; 96374; 96375; 97110; 97116; 97161; 97166; 97530; 97535; 99285; A9270; J0131; J0690; J1170; J1650; J2765; J7120; 87086

== ENCOUNTER 2019-12-10 11:49 | Outpatient (CLI) | payer MEDICARE, OTHER ==
--- NOTE | 2019-12-10 13:47 | XRAY Report ---
Reason: LEFT HIP FRACTURE Procedure Date: 12/10/2019 Accession Number: [id number] / [id number] Procedure: WCP - Hip 1 View LT CPT Code: Final Report FULL RESULT: PROCEDURE: Hip 1 View LT INDICATIONS: LEFT HIP FRACTURE TECHNIQUE: 3 views of the hip were acquired. COMPARISON: 2 views of the hip dated 12/30/2018 FINDINGS: Bones: Left hip arthroplasty is intact. No acute fracture or dislocation. No discrete lucency to suggest hardware loosening. Soft tissues: No suspicious soft tissue calcifications or masses. IMPRESSION: Stable postoperative change. Reviewed by: Leighann Peres MD on 12/10/2019 1:46 PM PDT Approved by: Leighann Peres MD on 12/10/2019 1:46 PM PDT Station ID: [id number]
== END 2019-12-10 23:59 | disposition home or self-care (01) ==
LOC: DI.WCP 11:49
PROVIDERS: ATTEND Orthopaedic Surgery
DX: S72.002D Fracture of unspecified part of neck of left femur, subsequent encounter for closed fracture with routine healing (principal); Z96.642 Presence of left artificial hip joint

== ENCOUNTER 2020-04-26 10:36 | Outpatient (CLI) | payer MEDICARE, OTHER ==
--- NOTE | 2020-04-26 17:24 | DEXA Report ---
PROCEDURE: Dexa Spine and/or Hip INDICATIONS: POST MENOPAUSAL TECHNIQUE: Dual energy x-ray absorptiometry (DXA) was performed on a [employer] System. Regions measur ed are the AP Spine, femoral neck, and if needed forearm. COMPARISON: None. FINDINGS: Lumbar Spine: Bone Mineral Density 1.1-2 g/cm/cm,T score -0.5, normal Left Hip: Bone Mineral Density 0.810 g/cm/cm,T score -1.6, osteopenia Left Femoral Neck: Bone Mineral Density 0.835 g/cm/cm, T score -1.5, osteopenia (T score greater or equal to -1.0: NORMAL) (T score from -1.1 to -2.4: OSTEOPENIA) (T score less than or equal to -2.5 to: OSTEOPOROSIS) Impression: Osteopenia. Patients with diagnosis of osteoporosis or osteopenia should have regular bone mineral density assess ment. For those eligible for Medicare, routine testing is allowed once every 2 years. Testing frequ ency can be increased for patients who have rapidly progressing disease or for those who are receivin g medical therapy to restore bone mass. Reviewed by: Ching Andrews MD, PhD on 04/26/2020 5:23 PM PST Approved by: Ching Andrews MD, PhD on 04/26/2020 5:23 PM PST Station ID: [id number]
== END 2020-04-26 10:37 | disposition home or self-care (01) ==
LOC: DI 10:36
PROVIDERS: ATTEND Registered Nurse
DX: M85.88 Other specified disorders of bone density and structure, other site (principal); Z78.0 Asymptomatic menopausal state
CPT/HCPCS: 77080

== ENCOUNTER 2022-05-17 09:31 | Outpatient (CLI) | payer MEDICARE, OTHER ==
--- NOTE | 2022-05-17 13:38 | DEXA Report ---
PROCEDURE: Dexa Spine and/or Hip INDICATIONS: OSTEOPENIA TECHNIQUE: Dual energy x-ray absorptiometry (DXA) was performed on a [employer] System. Regions measur ed are the AP Spine, femoral neck, and if needed forearm. COMPARISON: None. FINDINGS: Lumbar Spine: Bone Mineral Density 1.296 g/cm/cm,T score 0.6 (previously -0.4 on the comparison study dated 04/17) Right Femoral Neck: Bone Mineral Density 0.825 g/cm/cm, T score -1.5 (previously -1.5 on the study dated 04/26/2020). Left Hip: Bone Mineral Density 0.788 g/cm/cm,T score -1.7 (previously -1.6 on the comparison study dated 04/26). (T score greater or equal to -1.0: NORMAL) (T score from -1.1 to -2.4: OSTEOPENIA) (T score less than or equal to -2.5 to: OSTEOPOROSIS) Impression: 1. No osteopenia or osteoporosis of the lumbar spine. 2. Osteopenia of the right hip. Patients with diagnosis of osteoporosis or osteopenia should have regular bone mineral density assess ment. For those eligible for Medicare, routine testing is allowed once every 2 years. Testing frequ ency can be increased for patients who have rapidly progressing disease or for those who are receivin g medical therapy to restore bone mass. Reviewed by: Leighann Peres MD on 05/17/2022 1:37 PM PST Approved by: Leighann Peres MD on 05/17/2022 1:37 PM PST Station ID: [id number]
== END 2022-05-17 09:32 | disposition home or self-care (01) ==
LOC: DI 09:31
PROVIDERS: ATTEND Registered Nurse
DX: M85.88 Other specified disorders of bone density and structure, other site (principal)